=== PATIENT | male | born 1945 | race Caucasian/White ===

== ENCOUNTER → 2016-06-22 | Outpatient (CLI) | payer MEDICARE ==
--- NOTE | 2016-06-22 15:15 | MR ---
EXAMINATION TYPE: MR knee RT wo con DATE OF EXAM: 06/22/2016 1:42 PM COMPARISON: NONE HISTORY: Tear of medial meniscus right knee. Right knee pain after injury one month ago. History of p rior surgery per patient. TECHNIQUE: Multiplanar, multisequence images of the knee is performed without IV contrast. FINDINGS: MEDIAL MENISCUS: Oblique signal posterior horn of medial meniscus extends towards central body and ab uts inferior articular surface on sagittal image 10. Anterior horn shows linear horizontal signal dang s not extend to articular surface. LATERAL MENISCUS: Anterior and posterior horns are intact without tear. CRUCIATE LIGAMENTS: The anterior and posterior cruciate ligaments are intact and unremarkable. COLLATERAL LIGAMENTS: The medial collateral ligament and lateral collateral ligament complex are inta ct. Moderate to severe fluid signal surrounds medial collateral ligament and adjacent subcutaneous ti ssue. EXTENSOR MECHANISM: Visualized quadriceps and patellar tendons are intact. EFFUSION: There is small suprapatellar joint effusion. POPLITEAL CYST: There is tiny popliteal/clarke cyst. TRICOMPARTMENT SPACES: There is mild to moderate joint space loss patellofemoral compartment. Mild kylie int space loss medial tibiofemoral compartment is noted. There is mild tibial condylar spurring. CARTILAGE: There is loss or thinning of articular cartilage medial tibiofemoral compartment. No signi ficant chondral malacia patella is present. BONE MARROW SIGNAL: There is heterogeneous increased T2 signal consistent osseous contusion or bone m arrow edema involving the distal medial femoral condyle. OTHER: No additional significant abnormality is appreciated. IMPRESSION: 1. Full-thickness oblique tear posterior horn of medial meniscus. 2. Intrasubstance tearing anterior horn of medial meniscus. 3. Moderate to severe MCL sprain injury. 4. Osseous contusion or bone marrow edema involving distal medial femoral condyle. 5. Background of mild to moderate degenerative changes right knee as detailed above. 6. Tiny popliteal cyst.
== END | disposition home or self-care (01) ==
LOC: RADMRIMAIN 12:37
PROVIDERS: ATTEND Orthopaedic Surgery Adult Reconstructive Orthopaedic Surgery
DX: S83.241A Other tear of medial meniscus, current injury, right knee, initial encounter (principal); M17.11 Unilateral primary osteoarthritis, right knee; M71.21 Synovial cyst of popliteal space [Baker], right knee

== ENCOUNTER → 2016-06-23 | Outpatient (CLI) | payer MEDICARE ==
--- NOTE | 2016-06-23 10:33 | CTL ---
EXAMINATION TYPE: CT Low Dose Lung cancer screening DATE OF EXAM ORDERED: 06/23/2016 9:04 AM HISTORY: 70-year-old male abnormal chest x-ray, COPD. Lung cancer screening CT DLP: [address] CTDI: 2.49 mGy Automated exposure control for dose reduction was used. SCREENING VISIT: Baseline COMPARISON: None TECHNIQUE: Low dose computed tomography scan was performed through the chest at 1 mm thick sections a nd reconstructed images in the coronal and sagittal plane at [address] DIAGNOSTIC QUALITY: Limited, but interpretable FINDINGS: The heart is normal size without pericardial effusion. Coronary vessel calcifications are present and are remarkable for coronary artery disease. There is lipomatous hypertrophy of the anterior atrial septum. Ectasia/borderline aneurysm ascending aorta at 4.0 cm. Conventional arch vessels branching anatomy wi th mild atherosclerotic arch calcification. Additional mild aneurysm upper descending thoracic aorta at 3.3 cm. There is borderline to mildly enlarged caliber to the main right and left pulmonary arteries at 2.7 c m each suggesting underlying pulmonary arterial hypertension. There is a 2.6 x 1.9 cm ovoid intermedi ate density lesion in the prevascular space behind the manubrium that may have an extension from the right sternoclavicular joint. Otherwise, no thoracic lymphadenopathy. Evaluation of the lungs shows a 1.7 x 0.9 cm spiculated lesion along the anterior right midlung withi n the right upper lobe abutting the minor fissure. Mild diffuse bronchial wall thickening is noted suggesting bronchitis or chronic asthma. No consolida tion or pleural effusion. Visualized upper abdomen suggest numerous cysts from both kidneys. There is a 3.2 cm low-density mass associated with the right adrenal gland with density of -1 Hounsfield units suggestive of a lipid ri ch adrenal adenoma. An inferior splenule is noted. Bones: Endplate spondylosis mid to lower thoracic spine. No osseous destructive process. IMPRESSION: 1. Lung RADS 4B - suspicious; a 1.7 cm spiculated right upper lobe nodule. 2. A 2.6 x 1.9 cm ovoid lesion in the anterior mediastinum behind the sternal manubrium is suspected to represent a synovial cyst from the right sternoclavicular joint but this is not definite. 3. Bronchitis versus chronic asthma. 4. Ectatic/mildly aneurysmal thoracic aorta (ascending aorta 4.0 cm and upper descending thoracic aor ta 3.3 cm). 5. Findings suggesting pulmonary arterial hypertension. 6. A 3.2 cm low density mass involving the right adrenal gland suspected to represent a lipid rich ad renal adenoma. RECOMMENDATION: 1. PET CT to further evaluate and further clinical management for potential 1.7 cm right upper lobe l tiana cancer. 2. 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 3. Smoking cessation. CT LUNG RAD: Lung-Rad 4B Suspicious
== END | disposition home or self-care (01) ==
LOC: RADCTMAIN 08:38
PROVIDERS: ATTEND Family Medicine
DX: Z12.2 Encounter for screening for malignant neoplasm of respiratory organs (principal); R91.1 Solitary pulmonary nodule; F17.200 Nicotine dependence, unspecified, uncomplicated

== ENCOUNTER → 2016-07-25 | Outpatient (CLI) | payer MEDICARE ==
--- NOTE | 2016-07-25 18:42 | PE ---
EXAMINATION TYPE: PET CT fusion skull to thigh DATE OF EXAM: 07/25/2016 12:52 PM COMPARISON: Low-dose CT chest screening 06/23/2016 Prior PET/CT: None HISTORY: Abnormal screening CT of the chest, history of prostate cancer. TECHNIQUE: Following the intravenous administration of 14.5. mCi of F-18 FDG, whole body images are performed from the skull base to the midthigh. Images are reviewed on the computer in the coronal, a xial, and sagittal planes. Reconstructed rotating images are created on independent workstation and reviewed on the computer. A localization and attenuation correction CT is performed in conjunction with the PET scan. DLP: 532.32 mGycm SCAN: Initial Scan Blood glucose: 96 mg/dL Average Mediastinum SUV: 1.92 Average Liver SUV: 2.24 FINDINGS: NECK: No abnormal uptake THORAX: No abnormal uptake. The abnormal density in the anterior right middle lobe, at image 102 is a n SUV value of 0.6 suggesting granulomatous disease. Suspicious uptake is not identified. Monitoring with screening CT chest for lung cancer can be performed. The nodular density in the retrosternal spa ce in the superior mediastinum SUV value of 0.6 which is not suspicious. ABDOMEN: No abnormal uptake. The enlarged right adrenal gland has an SUV value 1.5. PELVIS: No abnormal uptake OSSEOUS STRUCTURES: No abnormal uptake LOCALIZATION CT: The ascending thoracic aorta at the level of main pulmonary artery is 4.9 cm which i s aneurysmal. The main pulmonary artery the bifurcation is 3.0 cm. There is some aneurysm of the infr arenal abdominal aorta AP diameter 5.0 cm which terminates above the bifurcation. Vascular calcificat ions within the aorta. Multiple cysts are on the bilateral kidneys. Gallstones are present. Coronary artery calcification is present. Right adrenal gland is enlarged measuring 3.3 cm. Old pelvic fractur e repair is evident. COMPARISON: No new findings from the screening CT of 06/23/2016. The medial right middle lobe lung mass is identified is not of abnormal uptake. The adrenal gland does not have abnormal uptake IMPRESSION: 1. No suspicious uptake to suggest hypermetabolic neoplasm. 2. Retrosternal nodular density, right enlarged low-density adrenal gland and oval right middle lobe lung findings with no hypermetabolic activity suggests benign processes. Consider monitoring CT of th e chest with contrast. Workup can be performed if should change. 3. Aneurysms of the ascending thoracic aorta distal abdominal aorta.
== END | disposition home or self-care (01) ==
LOC: RADPETMAIN 07:51
PROVIDERS: ATTEND Family Medicine
DX: R91.8 Other nonspecific abnormal finding of lung field (principal); I71.4 Abdominal aortic aneurysm, without rupture; I71.2 Thoracic aortic aneurysm, without rupture
CPT/HCPCS: 78815; A9552

== ENCOUNTER → 2016-11-24 | Outpatient (CLI) | payer MEDICARE ==
[2016-11-24 08:35] LABS: Blood Urea Nitrogen 11 mg/dL (9-20); Non-African American GFR(MDRD) >60 (>60 ml/min/1.73 sqM)
--- NOTE | 2016-11-24 11:25 | CT ---
EXAMINATION TYPE: CT chest w con DATE OF EXAM: 11/24/2016 COMPARISON: NONE HISTORY: Solitary pulmonary nodule CT DLP: 531.80 mGycm, Automated exposure control for dose reduction was used. CONTRAST: Performed injected with 100 ml mL of Omnipaque 300. TECHNIQUE: Axial images were obtained at 5 mm thick sections. Reconstructed images are reviewed on [employer] computer in the coronal plane. FINDINGS: Portion of the thyroid visualized is normal. There is soft tissue density anterior to the b rachiocephalic vein in the anterior superior mediastinum. Lymphadenopathy, and thymus are within the differential. This measures 2.6 x 1.9 cm in size. A few additional shotty lymph nodes are in the supe rior mediastinum in the pretracheal space. Couple small right peribronchial lymph nodes may be presen t. There is a spiculated mass within the right middle lobe measuring 2.8 x 2.6 cm. Series 3 image 30. In the cardiophrenic angle on the left there is a additional density measuring 2.8 x 1.2 cm. On lung windows additional irregular densities are present including the right middle lobe measuring 1.5 cm, series 4 image 26. Superior right lower lobe adjacent to the pleural margin measuring 1.2 cm. Series 4 image 35. No enlarged mediastinal or hilar adenopathy is evident. The ascending aorta diameter at the level o f the main pulmonary artery is 4.2 cm. The main pulmonary artery diameter at the bifurcation is 2.9 cm. Coronary artery calcification is present. Limited CT sections are obtained through the upper abdomen. Multiple renal cysts are present. Gallsto yuly are present. Right adrenal gland is enlarged and somewhat irregular measuring 3.4 cm in transvers e dimension. The left adrenal gland is slightly prominent measuring 1.5 cm in transverse dimension. There is a perinephric density with some adjacent stranding measuring 2.0 cm. Series 3 image 82. An e xophytic area could be on the kidney. A mass is not excluded. Some mild fatty infiltration liver is p resent. IMPRESSIONS: 1. Right middle lobe mass suspicious for neoplasm. 2. Focal area of increased density within the left cardiophrenic angle anteriorly. Underlying mass is not excluded. 3. Enlarged lymph node versus thymus within the anterior superior mediastinum. 4. Bilateral enlarged adrenal glands right more so than left. 5. A perinephric mass is not excluded posterior to the left kidney. Additional workup is recommended. 6. Additional right middle lobe right lower lobe lung masses are identified on lung windows discus sed above.
== END | disposition home or self-care (01) ==
LOC: RADCTMAIN 07:53
PROVIDERS: ATTEND Internal Medicine Critical Care Medicine
DX: R91.8 Other nonspecific abnormal finding of lung field (principal); R59.0 Localized enlarged lymph nodes
CPT/HCPCS: 82565; 84520; 71260; Q9967

== ENCOUNTER 2016-12-01 08:50 | Emergency (ER) | payer MEDICARE ==
[2016-12-01 09:02] VITALS: RESP 18; TEMP 97.6
[2016-12-01] MEDS ORDERED: OXYMETAZOLINE 0.05% NASL SPRAY 1 SPRAY BOTTLE NASAL STA (09:27)
--- NOTE | 2016-12-01 10:37 | ED ---
General Adult HPI - General Chief complaint: ENT Stated complaint: nose bleed Time Seen by Provider: 12/01/16 08:59 Source: patient, RN notes reviewed, old records reviewed Mode of arrival: ambulatory Limitations: no limitations - History of Present Illness Initial comments: This is a 70-year-old male the ER for evaluation. Patient presents today for evaluation regarding method nosebleeding. Woke with nosebleed today, no blood thinners. No headache no trauma. Patient denies any other complaints, does not feel lightheaded or dizzy. - Related Data Home Medications Medication Instructions Recorded Confirmed Aspirin 81 mg PO DAILY 03/07/14 12/01/16 Hydrochlorothiazide 25 mg PO DAILY 03/07/14 12/01/16 Losartan Potassium [Cozaar] 100 mg PO HS 03/07/14 12/01/16 Multivitamins, Thera [Multivitamin] 1 tab PO DAILY 03/07/14 12/01/16 Simvastatin [Zocor] 80 mg PO HS 03/07/14 12/01/16 amLODIPine [Norvasc] 5 mg PO DAILY 03/07/14 12/01/16 Allergies Allergy/AdvReac Type Severity Reaction Status Date / Time No Known Allergies Allergy Verified 12/01/16 09:46 Review of Systems ROS Statement: Those systems with pertinent positive or pertinent negative responses have been documented in the HPI. ROS Other: All systems not noted in ROS Statement are negative. Past Medical History Past Medical History: Cancer, Hyperlipidemia, Hypertension Additional Past Medical History / Comment(s): Prostate CA History of Any Multi-Drug Resistant Organisms: None Reported Past Surgical History: Hernia Repair, Joint Replacement, Orthopedic Surgery, Prostate Surgery Past Psychological History: No Psychological Hx Reported Smoking Status: Current every day smoker Past Alcohol Use History: Daily Past Drug Use History: None Reported General Exam Limitations: no limitations General appearance: alert, in no apparent distress Head exam: Present: atraumatic, normocephalic, normal inspection Eye exam: Present: normal appearance, PERRL, EOMI. Absent: scleral icterus, conjunctival injection, periorbital swelling ENT exam: Present: normal exam, mucous membranes moist Neck exam: Present: normal inspection. Absent: tenderness, meningismus, lymphadenopathy Respiratory exam: Present: normal lung sounds bilaterally. Absent: respiratory distress, wheezes, rales, rhonchi, stridor Cardiovascular Exam: Present: regular rate, normal rhythm, normal heart sounds. Absent: systolic murmur, diastolic murmur, rubs, gallop, clicks GI/Abdominal exam: Present: soft, normal bowel sounds. Absent: distended, tenderness, guarding, rebound, rigid Extremities exam: Present: normal inspection, full ROM, normal capillary refill. Absent: tenderness, pedal edema, joint swelling, calf tenderness Back exam: Present: normal inspection Neurological exam: Present: alert, oriented X3, CN II-XII intact Psychiatric exam: Present: normal affect, normal mood Skin exam: Present: warm, dry, intact, normal color. Absent: rash Course Vital Signs 12/01/16 08:59 Temperature 97.6 F Pulse Rate 92 Respiratory 18 Rate Blood Pressure 147/88 O2 Sat by Pulse 95 Oximetry - Reevaluation(s) Reevaluation #1: 12/01/16 10:37 Epistaxis treated with Afrin, bleeding stopped, silver nitrate Medical Decision Making - Medical Decision Making 70 male here for evaluation of epistaxis. Left naris epistaxis. That at this point has stopped. Disposition Clinical Impression: Epistaxis Disposition: HOME SELF-CARE Condition: Good Instructions: Nosebleed (ED) Referrals: Casimiro Sandoval MD [Primary Care Provider] - 1-2 days
[2016-12-01 10:45] VITALS: BP 135/80; PULSE 88
== END 2016-12-01 10:45 | disposition home or self-care (01) ==
LOC: EC 08:50
DX: R04.0 Epistaxis (principal); E78.5 Hyperlipidemia, unspecified; I10 Essential (primary) hypertension; Z85.46 Personal history of malignant neoplasm of prostate; F17.200 Nicotine dependence, unspecified, uncomplicated; Z79.82 Long term (current) use of aspirin; Z79.899 Other long term (current) drug therapy
CPT/HCPCS: 99283

== ENCOUNTER 2016-12-10 11:03 | Day surgery (SDC) | payer MEDICARE ==
[2016-12-09 13:09] VITALS: BMI 28.7
[~2016-12-10 11:03] MED LIST: ALBUTEROL NEB (CONC) 2.5 MG/0.5 ML INHALATION ONE; LACTATED RINGERS 1,000 ML IV ONE; LACTATED RINGERS 1,000 ML IV SCH; LIDOCAINE 2% (PF) 20 MG/ML 10ML INHALATION ONE; Pre Op ABX Message 1 EACH MISC MISCELLANE ONE
[2016-12-10] MEDS ORDERED: LIDOCAINE 1% 20 ML VIAL (10MG/ML) FOR IV START INTRADERMA ONE (11:40)
--- NOTE | 2016-12-10 13:10 | CT ---
EXAMINATION TYPE: CT Chest joshua Heredia Protocol DATE OF EXAM: 12/10/2016 COMPARISON: 11/24/2016 HISTORY: Preprocedural CT DLP: 627 mGycm Automated exposure control for dose reduction was used. FINDINGS: Portion of the thyroid visualized is normal. There is soft tissue density anterior to the brachioceph alic vein in the anterior superior mediastinum. Lymphadenopathy, and thymus are within the differenti al. This measures 2.6 x 1.9 cm in size. A few additional shotty lymph nodes are in the superior media stinum in the pretracheal space. Couple small right peribronchial lymph nodes may be present. There i s a spiculated mass within the right middle lobe measuring 2.8 x 2.6 cm. Second spiculated mass is stable. On lung windows additional irregular densities are present includin g the right middle lobe measuring 1.5 cm. Fat appearing attenuation along the right cardiac border ma y represent extension of pericardial fat, lipomatosis or small lipoma. Superior right lower lobe adjacent to the pleural margin measuring 1.2 cm. No enlarged mediastinal or hilar adenopathy is evident. The ascending aorta diameter at the level of the main pulmonary artery is 4.2 cm. The main pulmonary artery diameter at the bifurcation is 2.9 cm. Coronary artery calcifica tion is present. Limited CT sections are obtained through the upper abdomen. Multiple renal cysts are present. Gallsto yuly are present. Right adrenal gland is enlarged and somewhat irregular measuring 3.4 cm in transvers e dimension. The left adrenal gland is slightly prominent measuring 1.5 cm in transverse dimension. M etastases not excluded. Rib deformities are suggestive of chronic or previous trauma. IMPRESSION: 1. Navigation bronchoscopy
[2016-12-10] MEDS ORDERED: SUCCINYLCHOLINE CHLORIDE 100 MG/5 ML SYR IV ONE (13:54)
[2016-12-10] MEDS ORDERED: fentaNYL (PF) 50 MCG/ML 2 ML AMP ONE (13:54)
[2016-12-10] MEDS ORDERED: LIDOCAINE 1% INJ 10MG/ML (20 ML MDV) ONE (13:54)
[2016-12-10] MEDS ORDERED: PROPOFOL 10 MG/ML 20 ML VIAL IV ONE (13:54)
[2016-12-10] MEDS ORDERED: MIDAZOLAM 2 MG/2 ML VIAL ONE (13:54)
[2016-12-10] MEDS ORDERED: LACTATED RINGERS 1,000 ML IV ONE (14:22)
--- NOTE | 2016-12-10 14:48 | P.PCN ---
Date of Procedure: 12/10/16 Preoperative Diagnosis: pulmonary nodule , RUL Postoperative Diagnosis: same Procedure(s) Performed: navigational bronchoscopy, transbronchial biopsy, transbronchial needle aspirate , bronchioloalveolar lavage Anesthesia: JAGDISHA Surgeon: Ino Kennedy Estimated Blood Loss (ml): 10 Pathology: other Condition: stable Disposition: same day Operative Findings: This procedure was done in the operating room. The patient was anesthetized, intubated and placed on a mechanical ventilator. This process was done by anesthesia, Dr. Vicente Porter. A preoperative CAT scan was already done. The CAT scan was uploaded to the burn navigational system and appropriate markings of the right upper lobe pulmonary lesions were obtained. All this information was then transferred into the veran station. The appropriate the pads were applied to the patient's chest. Following this, the flexible bronchoscope was inserted to the ET tube and was advanced into the lower trachea. The tip of the ETT was seen around 3 cm above the melvin. The calibrations were done at 2 separate points which is the main melvin and the secondary melvin the to the right upper lobe and the bronchus intermedius. Airway inspection was done. The visualized airways included the distal trachea , bilateral mainstem bronchi, right upper lobe bronchus, bronchus intermedius, right middle lobe bronchus, right lower lobe bronchus. Examination of the left side including the left mainstem bronchus, left upper lobe bronchus and left lower lobe bronchus. All of the airways were inspected including the segments and subsegments. The airways were patent and within normal limits. At this point the bronchoscope was moved to the right upper lobe and the bronchioloalveolar lavage of the right middle lobe was done. A total of 120 mL of fluid was infused and 40 mL was suctioned back. Following that, the bronchoscope was moved to the right upper lobe anterior segment and using navigational guidance transbronchial biopsies of the right upper lobe lesion was done. Around 6 biopsies were taken under navigational guidance. Following that, transbronchial brushings was done. Atrovent of the procedure transbronchial needle aspirate of the right upper lobe lesion was done. Again navigational guidance was used to biopsy the right upper lobe lesions. Ultimately the bronchoscope was removed. The patient was extubated and the patient was transferred to recovery in stable condition. A chest x-ray will be done to rule out pneumothorax. If stable, the patient will be discharged home. Note that the airways inspection showed no acute abnormalities. There were no endobronchial lesions or tumors or foreign bodies identified. No significant respiratory secretions.
[2016-12-10 14:58] VITALS: RESP 18; TEMP 97.4
--- NOTE | 2016-12-10 15:27 | XR ---
EXAMINATION TYPE: XR chest 1V DATE OF EXAM: 12/10/2016 COMPARISON: 11/30/2016 HISTORY: Post bronchoscopy TECHNIQUE: Single frontal view of the chest is obtained. FINDINGS: Right perihilar and right middle lobe opacity may relate to postbiopsy hemorrhage and/or s cattered areas of atelectasis. No postprocedural pneumothorax is seen. Left lung remains clear. Relat millie prominence of the cardiac silhouette relates to portable nature of the examination. Osseous struc tures appear intact. IMPRESSION: No postprocedural pneumothorax. Right perihilar opacity may relate to postbiopsy hemorrh age and/or scattered areas of atelectasis.
[2016-12-10 16:27] VITALS: BP 144/74; PULSE 70
[2016-12-10 17:25] LABS: RBC, Body Fluid 100 /uL
== END 2016-12-10 16:40 | disposition home or self-care (01) ==
LOC: ORWHC2ENDO 11:03
PROVIDERS: ATTEND Internal Medicine Critical Care Medicine
DX: J40 Bronchitis, not specified as acute or chronic (principal); J44.9 Chronic obstructive pulmonary disease, unspecified; F17.200 Nicotine dependence, unspecified, uncomplicated; G47.33 Obstructive sleep apnea (adult) (pediatric); Z99.89 Dependence on other enabling machines and devices; I10 Essential (primary) hypertension; E78.5 Hyperlipidemia, unspecified; I71.4 Abdominal aortic aneurysm, without rupture; N28.1 Cyst of kidney, acquired; Z79.82 Long term (current) use of aspirin; Z79.899 Other long term (current) drug therapy
CPT/HCPCS: 87798 ×4; 87496; 87498; 87529 ×2; 88104; 88108; 88305; 88173; 89050; 87252; 87502 ×2; 87070; 87205; 87116; 87102; 87206; 71010; 71250; 31628; 31629; 31623; 31624; 31627; J2250; J2001; J3010; J0330; J2704; 31625

== ENCOUNTER → 2016-12-14 | Outpatient (CLI) | payer MEDICARE ==
[2016-12-14 08:25] LABS: ALT 38 U/L (21-72); AST 35 U/L (17-59); Cholesterol 172 mg/dL (<200); HDL Cholesterol 71 mg/dL (40-60)
== END | disposition home or self-care (01) ==
LOC: LABWHC1 07:49
PROVIDERS: ATTEND Internal Medicine Interventional Cardiology
DX: E78.2 Mixed hyperlipidemia (principal)
CPT/HCPCS: 36415; 80061; 84450; 84460

== ENCOUNTER → 2017-01-25 | Outpatient (CLI) | payer MEDICARE ==
[2017-01-25 11:10] LABS: Blood Urea Nitrogen 12 mg/dL (9-20); Non-African American GFR(MDRD) >60 (>60 ml/min/1.73 sqM)
--- NOTE | 2017-01-25 12:30 | CT ---
EXAMINATION TYPE: CT chest w con DATE OF EXAM: 01/25/2017 COMPARISON: PET/CT dated 07/25/[address] thorax dated 11/24/2016 HISTORY: pulmonary nodule follow up CT DLP: 481.3 mGycm. Automated Exposure Control for Dose Reduction was Utilized. TECHNIQUE: CT scan of the thorax is performed following with IV Contrast, patient injected with 100 mL of Omnipaque 300. FINDINGS: LUNGS: There is near complete resolution of the previously seen right middle lobe larger opacity now with a focal area of groundglass opacity measuring up to 1.0 x 0.6 cm. Superior to this within the an terior right middle lobe the previously seen nodule measuring 1.5 cm is similar now measuring 1.4 cm, overall stable given differences in measurement technique and slice selection. The previously seen o pacity in the left cardiophrenic angle has entirely resolved with no residual opacity remaining. Ill- defined patchy area of groundglass opacity remains in the region of the previously seen 1.2 cm subple ural right lower lobe pulmonary nodule. MEDIASTINUM: There are no greater than 1 cm hilar or mediastinal lymph nodes. Moderate three-vessel c oronary arteries ossifications are present in addition to minimal calcific atheromatous changes of th e thoracic aorta. Ascending thoracic aorta is again enlarged measuring 4.2 cm, stable from the prior exam. No pericardial effusion is seen. 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 There is a stable 2.5 x 1.9 cm superior mediastinal mass that is soft tissue attenuated . Again differential is for lymphadenopathy, thymoma, or residual thymus considered less likely given the rounded morphology. OTHER: Numerous partially visualized exophytic renal cysts are present and cholelithiasis. Additional ly there is diffuse hypoattenuation of the hepatic parenchyma in comparison to that of the splenic pa renchyma compatible with underlying hepatic steatosis. IMPRESSION: 1. Near complete resolution of the 2 larger right lower lobe and right middle lobe opacities as well as complete resolution of the opacity at the left cardiophrenic angle with persistent and overall sim ilar size of a right middle lobe 1.5 cm elongated nodule. Findings favor prior multifocal infectious or inflammatory etiology although continued surveillance for the stable 1.5 cm nodule is recommended. 2. Stable ascending thoracic aortic aneurysm. 3. Unchanged superior mediastinal rounded soft tissue attenuated mass that could relate to a thymoma or adenopathy. 4. 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
== END ==
LOC: RADCTMAIN 10:43
PROVIDERS: ATTEND Internal Medicine Critical Care Medicine
DX: R91.1 Solitary pulmonary nodule (principal); I71.2 Thoracic aortic aneurysm, without rupture; J98.59 Other diseases of mediastinum, not elsewhere classified
CPT/HCPCS: 82565; 84520; 71260; 36415; Q9967

== ENCOUNTER 2017-05-08 09:53 | Emergency (ER) | payer MEDICARE ==
--- NOTE | 2017-05-08 11:06 | ED ---
General Adult HPI - General Chief complaint: Extremity Problem,Nontraumatic Stated complaint: poss dvt Time Seen by Provider: 05/08/17 10:45 Source: patient, family, RN notes reviewed Mode of arrival: wheelchair Limitations: physical limitation - History of Present Illness Initial comments: 71-year-old male who presents emergency room today with a chief complaint of bilateral lower leg swelling. He does admit that he was [place] a cruise ship and noticed the symptoms 3 days ago he was walking around that he was having increased swelling specifically to the left lower extremity. He does admit that left leg has always been a little swollen after traumatic injury 26 years ago. Patient states that noticed much more swelling. He does not that he ran out of his hydrochlorothiazide approximately 5 days ago. Patient does admit that he's had some shortness of breath with going up and down some stairs. Also had a difficult time snorkeling. He states last Wednesday when she was over 2 years ago. Patient has seen planning lead and was told that he had 60% lung capacity in the past. Patient denies any shortness breath at this time. He states he is comfortable currently but does have some swelling to left lower leg. They were seen by a physician on the cruise ship pulled at his D-dimer test was positive and he should have ultrasound obtained. Patient denies any history of blood clots. Does take a daily aspirin. Denies any injury or trauma. Patient denies any recent fever, chills, chest pain, back pain, abdominal pain, nausea or vomiting, numbness or tingling, dysuria or hematuria, constipation or diarrhea, headaches or visual changes, or any other complaints. - Related Data Home Medications Medication Instructions Recorded Confirmed Aspirin 81 mg PO DAILY 03/07/14 12/10/16 Hydrochlorothiazide 25 mg PO DAILY 03/07/14 12/10/16 Losartan Potassium [Cozaar] 100 mg PO HS 03/07/14 12/10/16 Multivitamins, Thera [Multivitamin] 1 tab PO DAILY 03/07/14 12/10/16 Simvastatin [Zocor] 80 mg PO HS 03/07/14 12/10/16 amLODIPine [Norvasc] 5 mg PO DAILY 03/07/14 12/10/16 Allergies Allergy/AdvReac Type Severity Reaction Status Date / Time No Known Allergies Allergy Verified 05/08/17 10:36 Review of Systems ROS Statement: Those systems with pertinent positive or pertinent negative responses have been documented in the HPI. ROS Other: All systems not noted in ROS Statement are negative. Past Medical History Past Medical History: Cancer, COPD, Hyperlipidemia, Hypertension, Prostate Disorder Additional Past Medical History / Comment(s): Prostate CA, "spot on lung"- checking History of Any Multi-Drug Resistant Organisms: None Reported Past Surgical History: Hernia Repair, Orthopedic Surgery, Prostate Surgery Additional Past Surgical History / Comment(s): ORIF left hip from AA yrs. ago, knee surg., prostatectomy Past Anesthesia/Blood Transfusion Reactions: No Reported Reaction Past Psychological History: No Psychological Hx Reported Smoking Status: Current every day smoker Past Alcohol Use History: Occasional Past Drug Use History: None Reported - Past Family History Father Family Medical History: Cancer General Exam - General Exam Comments Initial Comments: General: The patient is awake and alert, in no distress, and does not appear acutely ill. Eye: Pupils are equal, round and reactive to light, extra-ocular movements are intact. No nystagmus. There is normal conjunctiva bilaterally. No signs of icterus. Ears, nose, mouth and throat: There are moist mucous membranes and no oral lesions. Neck: The neck is supple, there is no tenderness or JVD. Cardiovascular: There is a regular rate and rhythm. No murmur, rub or gallop is appreciated. Respiratory: Lungs are clear to auscultation, respirations are non-labored, breath sounds are equal. No wheezes, stridor, rales, or rhonchi. Musculoskeletal: Normal ROM. Patient does have increased swelling to left lower extremity compared to the right. Swelling around ankle and anterior left jiménez. States that there is some chronic swelling to his leg from previous trauma. Strength 5/5. Sensation intact. Pulses equal bilaterally 2+. Neurological: A&O x 3. CN II-XII intact, There are no obvious motor or sensory deficits. Coordination appears grossly intact. Speech is normal. Skin: Skin is warm and dry and no rashes or lesions are noted. Psychiatric: Cooperative, appropriate mood & affect, normal judgment. Limitations: physical limitation Course Vital Signs 05/08/17 10:32 Temperature 97.6 F Pulse Rate 80 Respiratory 16 Rate Blood Pressure 146/76 O2 Sat by Pulse 98 Oximetry EKG Findings - EKG Comments: EKG Findings:: EKG performed at 1203: Shows sinus rhythm at 69 bpm with left axis deviation. CO interval 168. QRS 112. QT/QTc 436/467. No acute ST changes. Medical Decision Making - Medical Decision Making Patient reexamined at this time shows no signs of distress. Patient's labs been reviewed. Negative BNP. Chest x-rays negative. He does have swelling greater than the left lower extremity but is somewhat chronic compared to the right. Ultrasound negative and no evidence of DVT in either leg. Patient's vitals are stable here the emergency room. He does admit that he was not on his buttock or thigh side for the past 5 days to see did not taken off medication for his cruise. Patient has restarted his meds. At this time is advised to elevate the legs or follow-up the family doctor in the next 2 days. Advised return if any symptoms increase or worsen. - Lab Data Result diagrams: 05/08/17 11:03 05/08/17 11:03 Lab Results 05/08/17 05/08/17 05/08/17 Range/Units 11:03 11:03 11:03 WBC 6.2 (3.8-10.6) k/uL RBC 4.25 L (4.30-5.90) m/uL Hgb 13.8 (13.0-17.5) gm/dL Hct 41.6 (39.0-53.0) % MCV 97.7 (80.0-100.0) fL MCH 32.4 (25.0-35.0) pg MCHC 33.2 (31.0-37.0) g/dL RDW 12.6 (11.5-15.5) % Plt Count 261 (150-450) k/uL Neutrophils % 64 % Lymphocytes % 18 % Monocytes % 11 % Eosinophils % 4 % Basophils % 1 % Neutrophils # 4.0 (1.3-7.7) k/uL Lymphocytes # 1.1 (1.0-4.8) k/uL Monocytes # 0.7 (0-1.0) k/uL Eosinophils # 0.3 (0-0.7) k/uL Basophils # 0.1 (0-0.2) k/uL PT (9.0-12.0) sec INR (<1.2) APTT (22.0-30.0) sec Sodium 146 H (137-145) mmol/L Potassium 4.2 (3.5-5.1) mmol/L Chloride 109 H (98-107) mmol/L Carbon Dioxide 26 (22-30) mmol/L Anion Gap 11 mmol/L BUN 14 (9-20) mg/dL Creatinine 0.80 (0.66-1.25) mg/dL Est GFR (MDRD) Af Amer >60 (>60 ml/min/1.73 sqM) Est GFR (MDRD) Non-Af >60 (>60 ml/min/1.73 sqM) Glucose 96 (74-99) mg/dL Calcium 10.0 (8.4-10.2) mg/dL Total Bilirubin 0.7 (0.2-1.3) mg/dL AST 29 (17-59) U/L ALT 27 (21-72) U/L Alkaline Phosphatase 62 (38-126) U/L Total Creatine Kinase 159 (55-170) U/L CK-MB (CK-2) 1.9 (0.0-2.4) ng/mL CK-MB (CK-2) Rel Index 1.2 Troponin I <0.012 (0.000-0.034) ng/mL NT-Pro-B Natriuret Pep pg/mL Total Protein 6.9 (6.3-8.2) g/dL Albumin 4.2 (3.5-5.0) g/dL 05/08/17 05/08/17 Range/Units 11:03 11:03 WBC (3.8-10.6) k/uL RBC (4.30-5.90) m/uL Hgb (13.0-17.5) gm/dL Hct (39.0-53.0) % MCV (80.0-100.0) fL MCH (25.0-35.0) pg MCHC (31.0-37.0) g/dL RDW (11.5-15.5) % Plt Count (150-450) k/uL Neutrophils % % Lymphocytes % % Monocytes % % Eosinophils % % Basophils % % Neutrophils # (1.3-7.7) k/uL Lymphocytes # (1.0-4.8) k/uL Monocytes # (0-1.0) k/uL Eosinophils # (0-0.7) k/uL Basophils # (0-0.2) k/uL PT 9.7 (9.0-12.0) sec INR 1.0 (<1.2) APTT 24.1 (22.0-30.0) sec Sodium (137-145) mmol/L Potassium (3.5-5.1) mmol/L Chloride (98-107) mmol/L Carbon Dioxide (22-30) mmol/L Anion Gap mmol/L BUN (9-20) mg/dL Creatinine (0.66-1.25) mg/dL Est GFR (MDRD) Af Amer (>60 ml/min/1.73 sqM) Est GFR (MDRD) Non-Af (>60 ml/min/1.73 sqM) Glucose (74-99) mg/dL Calcium (8.4-10.2) mg/dL Total Bilirubin (0.2-1.3) mg/dL AST (17-59) U/L ALT (21-72) U/L Alkaline Phosphatase (38-126) U/L Total Creatine Kinase (55-170) U/L CK-MB (CK-2) (0.0-2.4) ng/mL CK-MB (CK-2) Rel Index Troponin I (0.000-0.034) ng/mL NT-Pro-B Natriuret Pep 125 pg/mL Total Protein (6.3-8.2) g/dL Albumin (3.5-5.0) g/dL Disposition Clinical Impression: Leg edema Disposition: HOME SELF-CARE Condition: Good Instructions: Leg Edema (ED) Additional Instructions: Please elevate legs as discussed. Please follow-up with family doctor in the next 2 days. Please return to emergency room if the symptoms increase or worsen or for any other concerns. Referrals: Casimiro Sandoval MD [Primary Care Provider] - 1-2 days Time of Disposition: 12:28
[2017-05-08 11:20] LABS: Basophils # (A) 0.1 k/uL (0-0.2); Basophils % (A) 1 %; Eosinophils # (A) 0.3 k/uL (0-0.7); Eosinophils % (A) 4 %; HCT 41.6 % (39.0-53.0); HGB 13.8 gm/dL (13.0-17.5); Lymphocytes # (A) 1.1 k/uL (1.0-4.8); Lymphocytes % (A) 18 %; MCH 32.4 pg (25.0-35.0); MCHC 33.2 g/dL (31.0-37.0); MCV 97.7 fL (80.0-100.0); Monocytes # (A) 0.7 k/uL (0-1.0); Monocytes % (A) 11 %; Neutrophils % (A) 64 %; Platelet Count 261 k/uL (150-450); RBC 4.25 m/uL (4.30-5.90); RDW 12.6 % (11.5-15.5); WBC 6.2 k/uL (3.8-10.6)
[2017-05-08 11:29] LABS: ALT 27 U/L (21-72); AST 29 U/L (17-59); Albumin 4.2 g/dL (3.5-5.0); Alkaline Phosphatase 62 U/L (38-126); Anion Gap 11 mmol/L; Blood Urea Nitrogen 14 mg/dL (9-20); Carbon Dioxide 26 mmol/L (22-30); Chloride 109 mmol/L (98-107); Glucose 96 mg/dL (74-99); Potassium 4.2 mmol/L (3.5-5.1); Sodium 146 mmol/L (137-145); Total Bilirubin 0.7 mg/dL (0.2-1.3); Total Protein 6.9 g/dL (6.3-8.2)
[2017-05-08 11:54] LABS: Partial Thromboplastin Time 24.1 sec (22.0-30.0); Prothrombin Time 9.7 sec (9.0-12.0)
--- NOTE | 2017-05-08 12:03 | US ---
EXAMINATION TYPE: US venous doppler duplex LE DATE OF EXAM: 05/08/2017 11:44 AM COMPARISON: NONE CLINICAL HISTORY: Pain. Recent travel, swelling and pain in bilateral legs, left greater than right SIDE PERFORMED: Bilateral TECHNIQUE: The lower extremity deep venous system is examined utilizing real time linear array sonog naye with graded compression, doppler sonography and color-flow sonography. VESSELS IMAGED: External Iliac Vein (EIV) Common Femoral Vein Deep Femoral Vein Greater Saphenous Vein * Femoral Vein Popliteal Vein Small Saphenous Vein * Proximal Calf Veins (* superficial vessels) Right Leg: Negative for DVT Left Leg: Negative for DVT No popliteal fossa lesion is seen. IMPRESSION: THIS EXAMINATION IS NEGATIVE FOR DVT IN BOTH LEGS.
--- NOTE | 2017-05-08 12:04 | XR ---
EXAMINATION TYPE: XR chest 2V DATE OF EXAM: 05/08/2017 HISTORY: SOB. REFERENCE: Previous study dated 12/10/2016 lung volumes are mildly prominent. Heart size upper limits of normal. The lungs are clear.. FINDINGS: Lung volumes are prominent. The heart is at the upper limits of normal in size. The lungs a re clear. Pleural spaces are clear. IMPRESSION: 1. CORRELATE FOR COPD. 2. BORDERLINE CARDIOMEGALY.
[2017-05-08 12:07] LABS: Creatine Kinase 159 U/L (55-170)
[2017-05-08 12:21] LABS: Creatine Kinase MB 1.9 ng/mL (0.0-2.4); Troponin I <0.012 ng/mL (0.000-0.034)
[2017-05-08 12:43] VITALS: BP 142/79; PULSE 68; RESP 18; TEMP 97.8
== END 2017-05-08 12:48 | disposition home or self-care (01) ==
LOC: EC 09:53
DX: R60.0 Localized edema (principal); R06.02 Shortness of breath; E78.5 Hyperlipidemia, unspecified; I10 Essential (primary) hypertension; F17.200 Nicotine dependence, unspecified, uncomplicated; Z85.46 Personal history of malignant neoplasm of prostate; Z79.82 Long term (current) use of aspirin; Z79.899 Other long term (current) drug therapy
CPT/HCPCS: 36415; 71046; 80053; 82550; 82553; 83880; 84484; 85025; 85610; 85730; 93005; 93970; 99284

== ENCOUNTER → 2017-05-31 | Outpatient (CLI) | payer MEDICARE ==
[2017-05-31 08:16] LABS: ALT 27 U/L (21-72); AST 32 U/L (17-59); Albumin 4.5 g/dL (3.5-5.0); Alkaline Phosphatase 64 U/L (38-126); Anion Gap 12 mmol/L; Blood Urea Nitrogen 11 mg/dL (9-20); Calcium 9.8 mg/dL (8.4-10.2); Carbon Dioxide 27 mmol/L (22-30); Chloride 107 mmol/L (98-107); Cholesterol 154 mg/dL (<200); Glucose 98 mg/dL (74-99); HDL Cholesterol 67 mg/dL (40-60); LDL Cholesterol,Calculated 48 mg/dL (0-99); Potassium 4.4 mmol/L (3.5-5.1); Sodium 146 mmol/L (137-145); Total Bilirubin 0.8 mg/dL (0.2-1.3); Total Protein 7.2 g/dL (6.3-8.2); Triglycerides 194 mg/dL (<150)
== END | disposition home or self-care (01) ==
LOC: LABWHC1 07:11
PROVIDERS: ATTEND Internal Medicine Interventional Cardiology
DX: E78.2 Mixed hyperlipidemia (principal)
CPT/HCPCS: 36415; 80053; 80061

== ENCOUNTER → 2017-06-17 | Outpatient (CLI) | payer MEDICARE ==
[2017-06-17 12:13] LABS: Anion Gap 14 mmol/L; Blood Urea Nitrogen 17 mg/dL (9-20); Carbon Dioxide 27 mmol/L (22-30); Chloride 105 mmol/L (98-107); Glucose 115 mg/dL (74-99); Potassium 4.6 mmol/L (3.5-5.1); Sodium 146 mmol/L (137-145)
== END | disposition home or self-care (01) ==
LOC: LABWHC1 11:00
PROVIDERS: ATTEND Family Medicine
DX: I35.0 Nonrheumatic aortic (valve) stenosis (principal); E78.5 Hyperlipidemia, unspecified; I10 Essential (primary) hypertension; R25.1 Tremor, unspecified
CPT/HCPCS: 36415; 80048; 83880

== ENCOUNTER → 2017-08-25 | Outpatient (CLI) | payer MEDICARE ==
[2017-08-25 12:01] LABS: Blood Urea Nitrogen 14 mg/dL (9-20)
--- NOTE | 2017-08-25 13:18 | CT ---
EXAMINATION TYPE: CT chest w con DATE OF EXAM: 08/25/2017 COMPARISON: Exams dating back to 06/23/2016 HISTORY: Solitary Pulmonary Nodule CT DLP: 776 mGycm. Automated Exposure Control for Dose Reduction was Utilized. TECHNIQUE: CT scan of the thorax is performed following with IV Contrast, patient injected with 100 ml mL of Isovue 300. FINDINGS: LUNGS: Although the 1.5-1.6 cm pulmonary nodule within the inferior anterior right upper lobe along t he interlobar fissure has not changed in size dating back to 11/24/2016 this has not resolved and there fore is not infectious or inflammatory. Other benign processes are possible, however slow-growing emir plasm also remains a consideration. There has been interval resolution of the lingular opacity. No ne w pulmonary nodules are seen. No focal consolidation, pleural effusion or pneumothorax. The intrahepa tic tree is patent. MEDIASTINUM: There are no greater than 1 cm hilar or mediastinal lymph nodes other than the below men tioned possible superior mediastinal adenopathy. No pericardial effusion is seen. Three-vessel nelsy nary artery calcifications are moderate. Again within the superior mediastinum there is a stable appr oximately 2.6 x 1.8 cm low-density mass that could represent a thymoma or adenopathy. OTHER: Bilateral mild retroareolar gynecomastia is incidentally noted. There is redemonstration of st able adrenal gland nodule on the left and mass on the right at the mass measuring 3.4 cm. Again this is low-density and stable favored to represent a benign adenoma. Numerous renal cysts are redemonstra guillermo. The left perinephric rounded lesion measures approximately 2.1 cm and previously measured 2.0 cm on the exam of 11/24/2016. This is indeterminate in etiology. This is noted to be fluid attenuated and could represent an exophytic cyst with the small stalk. There is redemonstration of hepatic steatosi s and cholelithiasis. Small splenule is noted adjacent to the [place] spleen. Right atrial lipoma is a lso incidentally seen. IMPRESSION: 1. Stable irregular linear marginated, slightly spiculated 1.5 to 1.6 cm pulmonary nodule dating back to 06/23/2016, however slow-growing neoplasm remains a possibility given the morphology. No new pulmon gertrude nodules or mediastinal adenopathy. 2. Redemonstration of a stable superior mediastinal mass, hepatic steatosis, multiple benign-appearin g renal cysts, cholelithiasis, probably benign adrenal gland lesions, and indeterminant perinephric l esion that are stable in size.
== END | disposition home or self-care (01) ==
LOC: RADCTMAIN 11:12
PROVIDERS: ATTEND Internal Medicine Critical Care Medicine
DX: R91.1 Solitary pulmonary nodule (principal); J98.59 Other diseases of mediastinum, not elsewhere classified
CPT/HCPCS: 82565; 84520; 71260; 36415; Q9967

== ENCOUNTER → 2017-12-14 | Outpatient (CLI) | payer MEDICARE ==
[2017-12-14 08:43] LABS: ALT 20 U/L (21-72); AST 34 U/L (17-59); Cholesterol 147 mg/dL (<200); HDL Cholesterol 68 mg/dL (40-60); LDL Cholesterol,Calculated 62 mg/dL (0-99); Triglycerides 85 mg/dL (<150)
== END | disposition home or self-care (01) ==
LOC: LABWHC1 07:14
PROVIDERS: ATTEND Nurse Practitioner Adult Health
DX: E78.2 Mixed hyperlipidemia (principal)
CPT/HCPCS: 36415; 80061; 84450; 84460

== ENCOUNTER → 2018-02-21 | Outpatient (CLI) | payer MEDICARE ==
[2018-02-21 08:47] LABS: Blood Urea Nitrogen 13 mg/dL (9-20)
--- NOTE | 2018-02-21 09:46 | CT ---
EXAMINATION TYPE: CT chest w con DATE OF EXAM: 02/21/2018 COMPARISON: HISTORY: Solitary pulmonary nodule CT DLP: 621 mGycm Automated exposure control for dose reduction was used. CONTRAST: CT scan of the chest is performed with IV Contrast, patient injected with 100 mL of Isovue 300. FINDINGS: LUNGS: There is a stable irregular nodule within the anterior segment of the right upper lobe measuri ng 1.5 cm no new nodules are seen. Finding is nonspecific. Benign and malignant etiologies are in the differential diagnosis given the irregular margins. No consolidative pneumonia, pleural effusion or pneumothorax. Subsegmental changes posteriorly likely in the basis of dependent atelectasis. MEDIASTINUM: There remains a area of low attenuation in the anterior mediastinum retrosternal locatio n measuring 2.6 x 1.7 cm unchanged from prior exam. Measures 12 Hounsfield units suggestive of fluid. Mediastinal cyst in the differential diagnosis. No pericardial effusion is seen. Coronary artery ca lcification and mild cardiomegaly noted. OTHER: Numerous simple appearing renal cysts are noted and there is evidence of cholelithiasis. Athe rosclerotic change of the aorta with the final image exam documenting a aortic aneurysm measuring 4.4 cm. This was reported on a previous CT scan of 02/08/1715. Stable 3.4 cm right adrenal nodule is non specific. Hypertrophic and degenerative changes of the spine noted. IMPRESSION: 1. There is a stable 1.5 cm right upper lobe irregular shaped pulmonary nodule stable dating back to the CT scan of 06/23/2016. 2. Stable anterior mediastinal low density nodule measuring fluid attenuation may represent mediastin al cyst unchanged from multiple prior exams. 3. 4.4 cm abdominal aortic aneurysm not fully imaged. There is a report of 2014 documented aortic ane urysm measuring 4.8 cm. Follow-up with dedicated abdominal CT to assess for stability as clinically w arranted. 4. Cholelithiasis. 5. Multiple bilateral simple appearing renal cysts correlate for polycystic renal disease. #6 stable right adrenal nodule.
== END ==
LOC: RADCTMAIN 08:19
PROVIDERS: ATTEND Internal Medicine Critical Care Medicine
DX: R91.1 Solitary pulmonary nodule (principal)
CPT/HCPCS: 82565; 84520; 71260; 36415; Q9967

== ENCOUNTER → 2018-06-30 | Outpatient (CLI) | payer MEDICARE ==
[2018-06-30 21:29] LABS: Albumin 4.8 g/dL (3.80-4.90); Anion Gap 10.2 mmol/L (4.00-12.00); Carbon Dioxide 25.8 mmol/L (21.6-31.8); Globulin 2.4 g/dL (1.6-3.3); LDL Cholesterol,Calculated 62.4 mg/dL (0.0-131.0); Potassium 4.4 mmol/L (3.5-5.5); Total Bilirubin 0.8 mg/dL (0.3-1.2); Total Protein 7.2 g/dL (6.2-8.2); VLDL Calculation 30.6 mg/dL (5.00-40.00)
== END ==
LOC: LABWHC1 07:23
PROVIDERS: ATTEND Internal Medicine Interventional Cardiology
DX: E78.2 Mixed hyperlipidemia (principal)
CPT/HCPCS: 36415; 80053; 80061

== ENCOUNTER → 2019-01-09 | Outpatient (CLI) | payer MEDICARE ==
[2019-01-09 15:23] LABS: Basophils % (A) 1 %; Eosinophils # (A) 0.2 k/uL (0-0.7); Eosinophils % (A) 3 %; HCT 44.9 % (39.0-53.0); HGB 15.3 gm/dL (13.0-17.5); Lymphocytes # (A) 1.4 k/uL (1.0-4.8); Lymphocytes % (A) 21 %; MCH 33.2 pg (25.0-35.0); MCHC 34.1 g/dL (31.0-37.0); MCV 97.2 fL (80.0-100.0); Mean Platelet Volume 6.4; Monocytes # (A) 0.7 k/uL (0-1.0); Monocytes % (A) 10 %; Neutrophils # (A) 4.2 k/uL (1.3-7.7); Neutrophils % (A) 63 %; Platelet Count 199 k/uL (150-450); RBC 4.62 m/uL (4.30-5.90); RDW 12.8 % (11.5-15.5); WBC 6.6 k/uL (3.8-10.6)
--- NOTE | 2019-01-09 17:23 | XR ---
EXAMINATION TYPE: XR chest 2V DATE OF EXAM: 01/09/2019 COMPARISON: 05/08/2017 HISTORY: 73-year-old male cough and congestion TECHNIQUE: Frontal and lateral views FINDINGS: Heart limits of normal in size. Mild elongation/ectasia of the thoracic aorta. Some strandy atelectas is mid and lower lungs. Mild hyperinflation. No consolidation or pleural effusion. IMPRESSION: Chronic appearing changes, possible underlying COPD. No acute cardiopulmonary process.
--- NOTE | 2019-01-09 17:31 | XR ---
EXAMINATION TYPE: XR KUB DATE OF EXAM: 01/09/2019 CLINICAL DATA: 73-year-old male R19.4, R19.7, PHH COMPARISON: None FINDINGS: Prominent air-filled small and large bowel loops. No significant stool burden. No abnormally dilated bowel. Supine imaging limited for assessment of free air. Extensive fixation hardware along the proxi mal left femur and left hemipelvis. Surgical clips in the bilateral pelves. IMPRESSION: Diffusely gassy bowel without abnormal dilatation or significant stool burden.
[2019-01-09 18:31] LABS: African American GFR (CKD) 96.5 (60.0-200.0); Albumin 4.7 g/dL (3.80-4.90); Albumin/Globulin Ratio 2.47 (1.60-3.17); Anion Gap 11.5 mmol/L (4.00-12.00); BUN/Creat Ratio 14.44 Ratio (12.00-20.00); Calcium 9.4 mg/dL (8.7-10.3); Carbon Dioxide 26.5 mmol/L (21.6-31.8); Globulin 1.9 g/dL (1.6-3.3); Potassium 4.2 mmol/L (3.5-5.5); Total Bilirubin 0.7 mg/dL (0.2-1.2); Total Protein 6.6 g/dL (6.2-8.2)
== END | disposition home or self-care (01) ==
LOC: LABWHC1 14:08
PROVIDERS: ATTEND Family Medicine
DX: J44.1 Chronic obstructive pulmonary disease with (acute) exacerbation (principal); R05 Cough; R19.4 Change in bowel habit; R19.7 Diarrhea, unspecified; Q25.3 Supravalvular aortic stenosis; I10 Essential (primary) hypertension; E78.5 Hyperlipidemia, unspecified; I49.9 Cardiac arrhythmia, unspecified; E05.90 Thyrotoxicosis, unspecified without thyrotoxic crisis or storm; J44.9 Chronic obstructive pulmonary disease, unspecified
CPT/HCPCS: 36415; 71046; 74018; 80053; 84439; 84443; 85025; 93005

== ENCOUNTER → 2019-01-31 | Outpatient (CLI) | payer MEDICARE ==
[2019-01-31 10:14] LABS: HCT 46.2 % (39.0-53.0); HGB 15.2 gm/dL (13.0-17.5); MCH 32.2 pg (25.0-35.0); MCHC 32.8 g/dL (31.0-37.0); MCV 98.1 fL (80.0-100.0); Mean Platelet Volume 7.1; Platelet Count 198 k/uL (150-450)
[2019-01-31 10:25] LABS: INR 0.9 (<1.2); Partial Thromboplastin Time 27.5 sec (22.0-30.0); Prothrombin Time 9.7 sec (9.0-12.0)
[2019-01-31 18:07] LABS: African American GFR (CKD) 101.3 (60.0-200.0); Anion Gap 9.9 mmol/L (4.00-12.00); BUN/Creat Ratio 12.5 Ratio (12.00-20.00); Calcium 9.4 mg/dL (8.7-10.3); Carbon Dioxide 25.1 mmol/L (21.6-31.8); Potassium 4.4 mmol/L (3.5-5.5)
== END | disposition home or self-care (01) ==
LOC: LABWHC1 09:23
PROVIDERS: ATTEND Internal Medicine Interventional Cardiology
DX: Z01.810 Encounter for preprocedural cardiovascular examination (principal); I35.1 Nonrheumatic aortic (valve) insufficiency; I34.0 Nonrheumatic mitral (valve) insufficiency; R06.02 Shortness of breath
CPT/HCPCS: 36415; 80048; 85027; 85610; 85730

== ENCOUNTER → 2019-02-20 | Outpatient (CLI) | payer MEDICARE ==
[2019-02-20 08:13] LABS: African American GFR (CKD) >90 (>60 ml/min/1.73 sqM); Blood Urea Nitrogen 13 mg/dL (9-20); Non-African American GFR(CKD) 82 (>60 ml/min/1.73 sqM)
--- NOTE | 2019-02-20 10:31 | CT ---
EXAMINATION TYPE: CT chest wo/w con DATE OF EXAM: 02/20/2019 COMPARISON: 02/21/2018 HISTORY: Follow up pulmonary nodule CT DLP: 1052.4 mGycm. Automated Exposure Control for Dose Reduction was Utilized. TECHNIQUE: CT scan of the thorax is performed following without and with IV Contrast, patient inject ed with 100 mL of Isovue 300. FINDINGS: LUNGS: There is a stable spiculated anterior right upper lobe pulmonary nodule measuring 1.5 x 0.8 cm . This shows no interval growth in comparison to exams dating back to 06/23/2018 and no abnormal uptake on the PET/CT of 07/25/2016 despite its spiculated morphology. No new pulmonary nodule. Elongation of the trachea in anterior posterior dimension can be seen in COPD and tracheomalacia. Cat heter areas of subsegmental atelectasis and mild background emphysematous change. There is no pleur al effusion or pneumothorax seen. The tracheobronchial tree is patent. MEDIASTINUM: Mediastinal cystic lesion is unchanged given differences in slice selection measuring ap proximately 2.3 cm. Again this is fluid attenuated and thymic remnant cyst or mediastinal cyst is lik eri. These are benign etiologies. There are no greater than 1 cm hilar or mediastinal lymph nodes. No pericardial effusion is seen. Moderate coronary artery calcifications and mild cardiomegaly again noted. Lipoma is seen of the interatrial septum impressing upon the right atrium and inferior vena ca va. OTHER: No partially visualized numerous hepatic cysts and other lesions that are too small to accura tely characterize are seen. Calcified gallstone is noted. Stable low-density adrenal gland lesion, li wilfred adrenal gland adenoma on the right. Smaller probable left adrenal gland adenomas. Very small hia rosie hernia. Minimal retroareolar gynecomastia. Mild multilevel degenerative changes of the spine. IMPRESSION: 1. Continued stability in size and stable morphology of the spiculated right upper lobe pulmonary nod ule dating back to 06/23/2016. Although this is favored to be benign given its stability and lack of me tabolic activity on PET CT continued surveillance is recommended due to the spiculated morphology. 2. 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 3. Other incidental findings as seen on the priors such as bilateral adrenal gland lesions, renal les ions, hepatic steatosis, and coronary artery calcifications.
== END ==
LOC: RADCTMAIN 07:26
PROVIDERS: ATTEND Internal Medicine Critical Care Medicine
DX: J98.59 Other diseases of mediastinum, not elsewhere classified (principal); R91.1 Solitary pulmonary nodule
CPT/HCPCS: 82565; 84520; 71270; 36415; Q9967

== ENCOUNTER → 2019-05-10 | Outpatient (CLI) | payer MEDICARE ==
--- NOTE | 2019-05-10 15:41 | US ---
EXAMINATION TYPE: US venous doppler duplex LE BI DATE OF EXAM: 05/10/2019 3:28 PM COMPARISON: US 05/08/2017 CLINICAL HISTORY: Edema, I82.712. SIDE PERFORMED: Bilateral TECHNIQUE: The lower extremity deep venous system is examined utilizing real time linear array sonog naye with graded compression, doppler sonography and color-flow sonography. VESSELS IMAGED: External Iliac Vein (EIV) Common Femoral Vein Deep Femoral Vein Greater Saphenous Vein * Femoral Vein Popliteal Vein Small Saphenous Vein * Proximal Calf Veins (* superficial vessels) Right Leg: Negative for DVT Left Leg: Negative for DVT IMPRESSION: 1. Bilateral lower extremity ultrasound negative for deep venous thrombosis.
== END | disposition home or self-care (01) ==
LOC: RADUSWWP 14:57
PROVIDERS: ATTEND Family Medicine
DX: I82.712 Chronic embolism and thrombosis of superficial veins of left upper extremity (principal)
CPT/HCPCS: 93970

== ENCOUNTER → 2019-08-21 | Outpatient (CLI) | payer MEDICARE ==
--- NOTE | 2019-08-21 16:47 | CT ---
EXAMINATION TYPE: CT abdomen pelvis wo con DATE OF EXAM: 08/21/2019 HISTORY: Hematuria today. History of prostate cancer. CT DLP: 966.4 mGycm. Automated Exposure Control for Dose Reduction was Utilized. TECHNIQUE: CT scan of the abdomen and pelvis is performed without oral or IV contrast. COMPARISON: CT abdomen and pelvis February 15, 2015 and PET/CT July 25, 2016 FINDINGS: Within the limitations of a non-contrast study, the following observations are made. LUNG BASES: Coronary artery calcification and/or stent in the RCA distribution. Prominence of fat in the interarterial septum raises suspicion for lipomatous hypertrophy. LIVER/GB: Dependent small calcified gallstones.. PANCREAS: No significant abnormality is seen. SPLEEN: No significant abnormality is seen. ADRENALS: Stable sized low dense right adrenal mass measuring 3.7 x 3.5 cm axial image 32 consistent with benign lipid rich adenoma. Smaller low dense thickening inferior left adrenal gland axial image 38 likely reflecting smaller lipid rich adenoma. KIDNEYS: Numerous thin-walled dominant exophytic cysts scattered throughout both kidneys greater in n umber in the right kidney redemonstrated. No renal calculi or hydronephrosis identified. No intralumi nal calculi in the poorly distended bladder. Bladder has mild to moderate wall thickening greater sup eriorly. BOWEL: Suboptimal evaluation without enteric contrast. No suspicious small or large bowel dilatation. Diverticula in the left and sigmoid colon are present. No convincing CT evidence for acute diverticu litis. GENITAL ORGANS: Prostate gland also surgically absent. Surgical clips extend along the pelvic chain w alls bilaterally. LYMPH NODES: No greater than 1cm abdominal or pelvic lymph nodes are appreciated. OSSEOUS STRUCTURES: There are extensive fixating hardware and screws in the left pelvis and hip cause s some streak artifact limiting evaluation of pelvic structures. Moderate disc space narrowing and va cuum disc phenomenon lumbosacral junction. Grade 1 retrolisthesis L1 on L2 and L2 on L3 and to a grea ter degree L3 on L4 noted. Fairly moderate multilevel spurring in the thoracolumbar spine. OTHER: Moderate calcified plaque of the aorta extends into branch vessels. There is AAA up to 5.4 cm AP diameter axial image 69. No aneurysmal extension into common iliac arteries but there is 2.1 cm an eurysm of the left common iliac artery axial image 91 noted and additional smaller aneurysm of the le ft external iliac artery axial image 103 noted. Fairly stable 1.2 x 0.8 cm right gluteal subcutaneous lesion axial image 157 favoring sebaceous cyst or other benign etiology. IMPRESSION: 1. Source of hematuria not identified. Nonspecific mild to moderate wall thickening of the superior b ladder wall is noted. 2. Distal colonic diverticula without CT evidence for acute diverticulitis. 3. Aneurysmal AAA up to 5.4 cm on current study. Increase in size from prior. Vascular surgical refer ral advised if has not been performed.
== END | disposition home or self-care (01) ==
LOC: RADCTMAIN 16:08
PROVIDERS: ATTEND Nurse Practitioner Family
DX: I71.4 Abdominal aortic aneurysm, without rupture (principal); N32.9 Bladder disorder, unspecified; K57.30 Diverticulosis of large intestine without perforation or abscess without bleeding
CPT/HCPCS: 74176

== ENCOUNTER → 2019-09-12 | Outpatient (CLI) | payer MEDICARE ==
[2019-09-12 06:52] LABS: African American GFR (CKD) >90 (>60 ml/min/1.73 sqM); Blood Urea Nitrogen 8 mg/dL (9-20); Non-African American GFR(CKD) >90 (>60 ml/min/1.73 sqM)
--- NOTE | 2019-09-12 08:17 | CT ---
EXAMINATION TYPE: CT angio abdomen pelvis DATE OF EXAM: 09/12/2019 COMPARISON: CT abdomen 08/21/2019 HISTORY: AAA CT DLP: 2190 mGycm CONTRAST: CTA thoracic and abdominal aorta with 3-D reconstruction is performed without Oral Contrast and witho ut and with IV Contrast, patient injected with 100 ml mL of Isovue 370. Contrast CTA of the abdominal aorta was performed from the lung bases through the base of the pelvis. 3-D reconstruction imaging obtained at a separate workstation. CONTRAST CT ABDOMEN AND PELVIS ABDOMINAL AORTA: Infrarenal abdominal aortic aneurysm measuring 5.4 cm AP dimension with mural thromb us. Neck is noted to be approximately 4.8 cm from the renal artery origins. 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 There is also aneurysm of the left internal iliac artery at 2 cm. Atheroma tous changes are noted bilaterally without evidence for occlusion. No evidence for dissection or para -aortic hematoma. LIVER/GB-cholelithiasis noted. No space-occupying hepatic lesions. PANCREAS- No significant abnormality is seen. SPLEEN- No significant abnormality is seen. ADRENALS- No significant abnormality is seen. KIDNEYS/BLADDER-renal cystic changes noted bilaterally. BOWEL- No Significant abnormality GENITAL ORGANS: No gross abnormality seen. LYMPH NODES- No greater than 1cm abdominal or pelvic lymph nodes areappreciated. OSSEOUS STRUCTURES-postoperative changes of the left hemipelvis and left hip. OTHER- No significant abnormality is seen. IMPRESSION- 1. Infrarenal abdominal aortic aneurysm as discussed aneurysms of the left common iliac artery and th e left internal iliac artery.
== END | disposition home or self-care (01) ==
LOC: RADCTMAIN 06:09
PROVIDERS: ATTEND Surgery
DX: I71.4 Abdominal aortic aneurysm, without rupture (principal)
CPT/HCPCS: 82565; 84520; 36415; 74174; Q9967

== ENCOUNTER → 2019-10-25 | Outpatient (CLI) | payer MEDICARE ==
[2019-10-25 09:27] LABS: Basophils # (A) 0.1 k/uL (0-0.2); Basophils % (A) 1 %; Eosinophils # (A) 0.4 k/uL (0-0.7); Eosinophils % (A) 6 %; HCT 47.2 % (39.0-53.0); HGB 15.3 gm/dL (13.0-17.5); Lymphocytes # (A) 1.5 k/uL (1.0-4.8); Lymphocytes % (A) 27 %; MCH 32.1 pg (25.0-35.0); MCHC 32.4 g/dL (31.0-37.0); Mean Platelet Volume 7.7; Monocytes # (A) 0.6 k/uL (0-1.0); Monocytes % (A) 10 %; Neutrophils % (A) 53 %; Platelet Count 187 k/uL (150-450); RBC 4.77 m/uL (4.30-5.90); RDW 12.7 % (11.5-15.5); WBC 5.7 k/uL (3.8-10.6)
[2019-10-25 09:38] LABS: African American GFR (CKD) >90 (>60 ml/min/1.73 sqM); Anion Gap 6 mmol/L; Blood Urea Nitrogen 11 mg/dL (9-20); Carbon Dioxide 27 mmol/L (22-30); Chloride 109 mmol/L (98-107); Non-African American GFR(CKD) >90 (>60 ml/min/1.73 sqM); Potassium 4.8 mmol/L (3.5-5.1); Sodium 142 mmol/L (137-145)
== END | disposition home or self-care (01) ==
LOC: LABPAT 07:57
PROVIDERS: ATTEND Surgery
DX: Z01.818 Encounter for other preprocedural examination (principal); I71.4 Abdominal aortic aneurysm, without rupture
CPT/HCPCS: 36415; 80051; 82565; 84520; 85025

== ENCOUNTER 2019-10-30 09:20 | Inpatient (IN) | payer MEDICARE ==
[2019-10-25 09:12] VITALS: BMI 30.6
[~2019-10-30 09:20] MED LIST changes: -ALBUTEROL NEB (CONC) 2.5 MG/0.5 ML INHALATION ONE; +DEXAMETHASONE SOD PHOSPHATE 10 MG/ML 1 ML VIAL IV ONE; -LACTATED RINGERS 1,000 ML IV ONE; -LACTATED RINGERS 1,000 ML IV SCH; +LIDOCAINE 1% (10MG/ML) FOR IV START INTRADERMA PRN; -LIDOCAINE 2% (PF) 20 MG/ML 10ML INHALATION ONE; +MIDAZOLAM 2 MG/2 ML VIAL IV PRN; -Pre Op ABX Message 1 EACH MISC MISCELLANE ONE; +SODIUM CHLORIDE 0.9% 1,000 ML in EMPTY BAG 1 BAG IV ONE; +fentaNYL (PF) 50 MCG/ML 2 ML AMP IV PRN
[2019-10-30] MEDS ORDERED: SODIUM CHLORIDE 0.9% 1,000 ML IV ONE (09:35)
[2019-10-30] MEDS ORDERED: LIDOCAINE 1% INJ 10MG/ML (20 ML MDV) ONE ×2 (10:08→11:28)
[2019-10-30] MEDS ORDERED: ceFAZolin 1,000 MG VIAL ONE (11:28)
[2019-10-30] MEDS ORDERED: SODIUM CHLORIDE 0.9% 100 ML BAG ONE (11:28)
[2019-10-30] MEDS ORDERED: NEOSTIGMINE 1 MG/ML 10 ML VIAL ONE (11:28)
[2019-10-30] MEDS ORDERED: SUCCINYLCHOLINE CHLORIDE 100 MG/5 ML SYR IV ONE (11:28)
[2019-10-30] MEDS ORDERED: PROPOFOL 10 MG/ML 20 ML VIAL IV ONE (11:28)
[2019-10-30] MEDS ORDERED: fentaNYL (PF) 50 MCG/ML 2 ML AMP ONE (11:28)
[2019-10-30] MEDS ORDERED: PHENYLEPHRINE-0.9% NACL SYG 1 MG/10 ML SYRINGE ONE (11:28)
[2019-10-30] MEDS ORDERED: PROTAMINE SULFATE 10 MG/ML 5 ML VIAL IV ONE (11:28)
[2019-10-30] MEDS ORDERED: ROCURONIUM BROMIDE 10 MG/ML 5 ML VIAL IV ONE (11:28)
[2019-10-30] MEDS ORDERED: GLYCOPYRROLATE 0.2 MG/ML 2 ML VIAL ONE (11:28)
[2019-10-30] MEDS ORDERED: HEPARIN SODIUM,PORCINE 10,000 UNIT/ML 1 ML VIAL ONE (11:28)
[2019-10-30] MEDS ORDERED: ESMOLOL 100 MG/10 ML VIAL ONE (11:28)
[2019-10-30] MEDS ORDERED: ONDANSETRON 4 MG/2 ML VIAL ONE (11:28)
[2019-10-30] MEDS ORDERED: MIDAZOLAM 2 MG/2 ML VIAL ONE (11:28)
[2019-10-30] MEDS ORDERED: DEXAMETHASONE SOD PHOSPHATE 10 MG/ML 1 ML VIAL ONE (11:28)
[2019-10-30] MEDS ORDERED: IV FLUID CONTINUATION 1,000 ML IV ONE (14:12)
[2019-10-30] MEDS ORDERED: NITROGLYCERIN-D5W PMX 50 MG in DEXTROSE/WATER 1 250ML.BAG IV ONE (14:18)
--- NOTE | 2019-10-30 14:20 | IR ---
EXAMINATION TYPE: IR stent intravas non coronary DATE OF EXAM: 10/30/2019 CLINICAL HISTORY: AAA. TECHNIQUE: Fluoroscopy. COMPARISON: None. FINDINGS: Fluoroscopic guidance was provided during abdominal aortic stent graft insertion procedure performed by Dr. Mccurdy. A total of 10.2 minutes of fluoroscopic time was utilized during the pr ocedure and multiple cine runs and images are acquired. Please refer to procedure note for further de tails as I was not present nor performed procedure. IMPRESSION: As Above.
[2019-10-30] MEDS ORDERED: HYDROcodone/APAP 5-325MG 1 EACH TAB PO PRN ×2 (14:35→14:38)
--- NOTE | 2019-10-30 14:51 | P.OP ---
Date of Procedure: 10/30/19 Preoperative Diagnosis: 5.7 cm infrarenal abdominal aortic aneurysm Postoperative Diagnosis: Same. Procedure(s) Performed: Stent graft repair infrarenal abdominal aortic aneurysm utilizing Medtronic Endurate 2 stent graft system. Anesthesia: GETA Surgeon: Shmuel Mccurdy Estimated Blood Loss (ml): 75 Pathology: none sent Condition: stable Indications for Procedure: Patient was noted to have a 5.7 cm infrarenal abdominal aortic aneurysm. 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 Because the size of infrarenal aneurysm patient is offered stent graft repair. Description of Procedure: Patient was brought to the specials procedure suite. He was administered general endotracheal anesthesia delivered by the department anesthesiology. De Souza catheter is placed to gravity drainage. The patient received 2 g of Ancef in the perioperative phase for prophylactic antibiotic therapy. The patient was then sterilely prepped and draped in usual manner. Utilizing ultrasound the left common femoral artery was identified. A micropuncture needle was utilized to cannulate the common femoral artery. Guidewire was advanced into the artery. The needle was withdrawn and a micropuncture sheath and dilator advanced over the guidewire. The dilator and guidewire were withdrawn and exchanged for 0.035 inch braided J-tipped guidewire. The micropuncture sheath was withdrawn and exchanged for 5-Vincentian sheath and dilator system. The guidewire and dilator were withdrawn. A 0.035 inch Glidewire was advanced under fluoroscopic guidance into the abdominal aorta. Perclose device was then deployed in the 10 and 2 o'clock position and an 8-Vincentian sheath was placed. A similar procedure was performed for the contralateral side. The Lunderquist guidewire was advanced from the right and position superiorly at the aortic knob. From the left a marker pigtail catheter was advanced over the guidewire and positioned at the L1-L2 interspace. Angiogram was performed with the renal artery orifices being marked. From the right side the sheath was withdrawn and a Endurate 2S stent graft system measuring 28 x 14 x 103 cm was selected and advanced over the guidewire. It was positioned just below the renal arteries and deployed. The suprarenal fixation device was then opened. From the left pigtail catheter was exchanged for a angled glide catheter. [place] wire and glide catheter combination were utilized to cannulate the limb of the main body stent graft system. This was confirmed by spinning a pigtail catheter within the main body the stent graft without resistance. Guidewire was then readvanced through the pigtail catheter. A left iliac angiogram was performed and the origin of the internal iliac artery was noted. An Endurate 2 stent graft system limb was selected. This measured 16 x 24 x 156 mm and successfully deployed just above the bifurcation of the external and internal iliac arteries. A the delivery system was removed over guidewire and a 14-Vincentian sheath was advanced over the guidewire From the right and Endurate 2 stent graft system limb measuring 16 x 16 x 24 was selected after angiography demonstrated the length of limb needed. Limb was then advanced over the guidewire and successfully deployed. Lung dilation was utilized at all points of overlap of the stent graft system as well as at the proximal and distal landing zones. Pigtail catheter was then readvanced and a completion angiogram was performed. His demonstrated no evidence of any type of endoleak. With the above findings noted the sheath on the right was withdrawn and the Perclose device successfully sealed the arteriotomy. Similar procedure was performed on the left with similar results. Patient tolerated the procedure well. Palpable posterior tibial pulses were noted bilaterally. He was taken the recovery area satisfactory and stable condition.
[2019-10-30 15:18] LABS: Glucose,Whole Blood 74 mg/dL (75-99)
[2019-10-30] MEDS ORDERED: NALOXONE 0.4 MG/ML 1 ML VIAL IV PRN (16:29)
[2019-10-30] MEDS: LACTATED RINGERS 1,000 ML IV SCH ×2 (16:55→17:55)
[2019-10-30 17:40] LABS: ALT 18 U/L (4-49); AST 34 U/L (17-59); African American GFR (CKD) >90 (>60 ml/min/1.73 sqM); Albumin 3.7 g/dL (3.5-5.0); Alkaline Phosphatase 69 U/L (38-126); Anion Gap 6 mmol/L; Blood Urea Nitrogen 12 mg/dL (9-20); Calcium 8.6 mg/dL (8.4-10.2); Carbon Dioxide 21 mmol/L (22-30); Chloride 110 mmol/L (98-107); Glucose 97 mg/dL (74-99); Non-African American GFR(CKD) >90 (>60 ml/min/1.73 sqM); Potassium 4.3 mmol/L (3.5-5.1); Sodium 137 mmol/L (137-145); Total Bilirubin 0.9 mg/dL (0.2-1.3)
[2019-10-30] MEDS: METOPROLOL SUCCINATE (ER) 50 MG TAB.ER.24H PO SCH (17:54)
[2019-10-30 19:46] LABS: Magnesium 1.9 mg/dL (1.6-2.3); Phosphorus 3.2 mg/dL (2.5-4.5)
[2019-10-30] MEDS ORDERED: ATORVASTATIN 40 MG TAB PO SCH (21:00)
[2019-10-30] MEDS: IPRATROPIUM 0.5 MG/2.5 ML NEBU INHALATION SCH (21:13)
[2019-10-30] MEDS: MAGNESIUM SULFATE-D5W PMX 1 GM in DEXTROSE/WATER 1 100ML.BAG IVPB SCH ×2 (22:21→23:36)
[2019-10-31] MEDS: LACTATED RINGERS 1,000 ML IV SCH ×2 (04:50→11:39)
[2019-10-31 05:14] LABS: Basophils % (A) 0 %; Eosinophils % (A) 0 %; HCT 39.1 % (39.0-53.0); HGB 13.2 gm/dL (13.0-17.5); Lymphocytes # (A) 0.7 k/uL (1.0-4.8); Lymphocytes % (A) 6 %; MCH 33.2 pg (25.0-35.0); MCHC 33.8 g/dL (31.0-37.0); Monocytes # (A) 0.9 k/uL (0-1.0); Monocytes % (A) 7 %; Neutrophils # (A) 10.1 k/uL (1.3-7.7); Neutrophils % (A) 86 %; Platelet Count 140 k/uL (150-450); RBC 3.99 m/uL (4.30-5.90); RDW 12.2 % (11.5-15.5); WBC 11.8 k/uL (3.8-10.6)
[2019-10-31 05:30] LABS: African American GFR (CKD) >90 (>60 ml/min/1.73 sqM); Anion Gap 4 mmol/L; Blood Urea Nitrogen 13 mg/dL (9-20); Calcium 8.7 mg/dL (8.4-10.2); Carbon Dioxide 23 mmol/L (22-30); Chloride 106 mmol/L (98-107); Glucose 156 mg/dL (74-99); Non-African American GFR(CKD) >90 (>60 ml/min/1.73 sqM); Sodium 133 mmol/L (137-145)
[2019-10-31] MEDS: METOPROLOL SUCCINATE (ER) 50 MG TAB.ER.24H PO SCH (07:52)
[2019-10-31] MEDS ORDERED: FORMOTEROL FUMARATE 20 MCG/2 ML NEBU INHALATION SCH (08:00)
[2019-10-31] MEDS: IPRATROPIUM 0.5 MG/2.5 ML NEBU INHALATION SCH ×2 (08:08→12:04)
[2019-10-31] MEDS ORDERED: FUROSEMIDE 20 MG TAB PO SCH (09:00)
[2019-10-31] MEDS ORDERED: ASPIRIN 81 MG PO SCH (09:00)
[2019-10-31] MEDS ORDERED: CLOPIDOGREL 75 MG TAB PO SCH (09:00)
[2019-10-31] MEDS ORDERED: POTASSIUM CHLORIDE ER 10 MEQ TAB.ER.PRT PO SCH (09:00)
--- NOTE | 2019-10-31 09:43 | P.DS ---
Providers Date of admission: 10/30/19 09:20 Expected date of discharge: 10/31/19 Attending physician: Shmuel Mccurdy DO Consults: 10/30/19 06:18 Consult to Anesthesia Routine Consulting Provider: Anesthesia,Services Consult Reason/Comments: General anesthesia for Aortic Stent procedure 10/30/19 17:46 Consult Physician Routine Consulting Provider: Casimiro Sandoval Consult Reason/Comments: Medical Management Do you want consulting provider notified?: Yes Primary care physician: Casimiro Sandoval [facility] Course: This is 73-year-old male who came in for outpatient stent graft repair of his eye 0.7 cminfrarenal abdominal aortic aneurysm. He is postop day 1 in the ICU. He had no acute changes through the night. Vital signs have been stable. He has not had any active bleeding from either groin. He is able to move bilateral lower extremities. He denies any shortness of breath or chest pain. He denies any pain. De Souza catheter and a line are still intact. Assessment: General appearance: The patient is alert, oriented, in no acute distress. HET: Head is normocephalic and atraumatic. Pupils are equal and reactive. Neck: Supple. Trachea midline. Heart: S1 S2. Regular rate and rhythm. Lungs: No crackles or wheezes are heard. Abdomen: Soft, nontender, nondistended with bowel sounds. No peritoneal signs. Extremities: Normal skin color and turgor. No cyanosis, rash, ulceration, clubbing, or edema. Palpable bilateral femoral pulses. Bilateral groin site incisions are well approximated without any bleeding. No hematoma is noted. Patient is able to move and wiggle bilateral lower extremities and are warm to touch. Neurological: No focal deficits. Strength and sensation are grossly intact. ASSESSMENT: 1. Status post op day 1 stent graft repair of infrarenal abdominal aortic aneurysm. 2. 5.7 cm infrarenal abdominal aortic aneurysm 3. Hypertension Plan: Remove A-line and De Souza catheter. Assist patient to ambulate. If patient is able to void after De Souza catheter removal and tolerate lunch, patient may be discharged home later this afternoon. The above dictated assessment and findings were discussed with Dr. De Souza. The impression and plan of care have been directed as dictated. Procedures: Stent graft repair for infrarenal abdominal aortic aneurysm utilizing Medtronic Endurate 2 stent graft system Patient Condition at Discharge: Good Plan - Discharge Summary Discharge Rx Participant: No New Discharge Prescriptions: Continue Simvastatin [Zocor] 80 mg PO HS Aspirin 81 mg PO DAILY Multivitamins, Thera [Multivitamin (formulary)] 1 tab PO DAILY Tiotropium Br/Olodaterol HCl [Stiolto Respimat Inhal [place]] 2 puff INHALATION DAILY Furosemide [Lasix] 20 mg PO DAILY Clopidogrel [Plavix] 75 mg PO DAILY Potassium Chloride 10 meq PO DAILY Metoprolol Succinate (ER) [Toprol XL] 50 mg PO DAILY Discharge Medication List Aspirin 81 mg PO DAILY 03/07/14 [History] Multivitamins, Thera [Multivitamin (formulary)] 1 tab PO DAILY 03/07/14 [History] Simvastatin [Zocor] 80 mg PO HS 03/07/14 [History] Clopidogrel [Plavix] 75 mg PO DAILY 10/25/19 [History] Furosemide [Lasix] 20 mg PO DAILY 10/25/19 [History] Metoprolol Succinate (ER) [Toprol XL] 50 mg PO DAILY 10/25/19 [History] Potassium Chloride 10 meq PO DAILY 10/25/19 [History] Tiotropium Br/Olodaterol HCl [Stiolto Respimat Inhal [place]] 2 puff INHALATION DAILY 10/25/19 [History] Follow up Appointment(s)/Referral(s): Shmuel Mccurdy DO [Doctor of Osteopathic Medicine] - 2 Weeks Activity/Diet/Wound Care/Special Instructions: No heavy lifting greater than 10 pounds. Patient may shower starting tomorrow, no tub bath. Watch for signs and symptoms of infection, fevers greater than 100.4 call the office. All the office with any active signs of bleeding from incision sites. Discharge Disposition: HOME SELF-CARE
[2019-10-31 12:52] VITALS: BP 131/72; PULSE 77; RESP 25; TEMP 98.2
== END 2019-10-31 13:08 | disposition home or self-care (01) | DRG 269 ==
LOC: 2ORMAIN 09:20 → 2SICU 16:06
PROVIDERS: ADMIT Surgery; ATTEND Surgery
PROC: 04V03DZ Restriction of Abdominal Aorta with Intraluminal Device, Percutaneous Approach (ICD-10-PCS; principal; 2019-10-30 11:15)
DX: I71.4 Abdominal aortic aneurysm, without rupture (principal); I10 Essential (primary) hypertension; G47.33 Obstructive sleep apnea (adult) (pediatric); F17.210 Nicotine dependence, cigarettes, uncomplicated; Z79.02 Long term (current) use of antithrombotics/antiplatelets; Z79.82 Long term (current) use of aspirin; Z79.899 Other long term (current) drug therapy; Z98.890 Other specified postprocedural states; Z80.42 Family history of malignant neoplasm of prostate; Z82.0 Family history of epilepsy and other diseases of the nervous system
CPT/HCPCS: 34705; 80048; 80053; 83735; 84100; 85025; 86850; 86900; 86901; 94640

== ENCOUNTER 2019-11-01 10:33 | Inpatient (IN) | payer MEDICARE ==
[2019-11-01] MEDS ORDERED: SODIUM CHLORIDE 0.9% 1,000 ML IV STA (10:43)
[2019-11-01] MEDS ORDERED: DILTIAZEM DRIP BOLUS FROM BAG 1 MG SOLN IV ONE (10:50)
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
[2019-11-01] MEDS: DILTIAZEM 125 MG in SODIUM CHLORIDE 0.9% 100 ML IV SCH ×2 (11:14→23:48)
[2019-11-01 11:15] LABS: Basophils % (A) 0 %; Eosinophils # (A) 0.1 k/uL (0-0.7); Eosinophils % (A) 1 %; HCT 43.7 % (39.0-53.0); HGB 14.5 gm/dL (13.0-17.5); Lymphocytes # (A) 1.1 k/uL (1.0-4.8); Lymphocytes % (A) 12 %; MCH 32.3 pg (25.0-35.0); MCHC 33.1 g/dL (31.0-37.0); MCV 97.8 fL (80.0-100.0); Mean Platelet Volume 8.2; Monocytes % (A) 11 %; Neutrophils # (A) 6.9 k/uL (1.3-7.7); Neutrophils % (A) 74 %; Platelet Count 142 k/uL (150-450); RBC 4.47 m/uL (4.30-5.90); RDW 12.3 % (11.5-15.5); WBC 9.3 k/uL (3.8-10.6)
[2019-11-01 11:26] LABS: INR 0.9 (<1.2); Partial Thromboplastin Time 26.6 sec (22.0-30.0); Prothrombin Time 9.9 sec (9.0-12.0)
--- NOTE | 2019-11-01 11:28 | XR ---
EXAMINATION TYPE: XR chest 1V portable DATE OF EXAM: 11/01/2019 Comparison: 01/09/2019 Clinical History: 73-year-old male tachycardia Findings: Heart borderline enlarged. Elongation/ectasia of the thoracic aorta. Mild diffuse interstitial densit y. Some strandy atelectasis at the cardiac apex. No pleural effusion. Impression: Mild interstitial prominence. Correlate to exclude mild pulmonary vascular congestion.
[2019-11-01 11:31] LABS: ALT 15 U/L (4-49); AST 28 U/L (17-59); African American GFR (CKD) >90 (>60 ml/min/1.73 sqM); Albumin 4.1 g/dL (3.5-5.0); Alkaline Phosphatase 70 U/L (38-126); Anion Gap 8 mmol/L; Blood Urea Nitrogen 11 mg/dL (9-20); Calcium 9.4 mg/dL (8.4-10.2); Carbon Dioxide 23 mmol/L (22-30); Chloride 109 mmol/L (98-107); Glucose 166 mg/dL (74-99); Non-African American GFR(CKD) >90 (>60 ml/min/1.73 sqM); Potassium 3.7 mmol/L (3.5-5.1); Sodium 140 mmol/L (137-145); Total Bilirubin 0.9 mg/dL (0.2-1.3); Total Protein 6.7 g/dL (6.3-8.2)
[2019-11-01] MEDS ORDERED: ACETAMINOPHEN TAB 325 MG TAB PO PRN (12:40)
[2019-11-01] MEDS ORDERED: NALOXONE 0.4 MG/ML 1 ML VIAL IV PRN (12:40)
[2019-11-01] MEDS: SODIUM CHLORIDE 0.9% 1,000 ML IV SCH (12:54)
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
[2019-11-01] MEDS: APIXABAN 5 MG TAB PO SCH ×2 (15:50→20:14)
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
[2019-11-01] MEDS: AMIODARONE 200 MG TAB PO SCH (20:14)
[2019-11-01] MEDS ORDERED: ATORVASTATIN 40 MG TAB PO SCH (21:00)
[2019-11-01] MEDS ORDERED: METOPROLOL TARTRATE 25 MG TAB PO SCH (21:00)
[2019-11-01 22:40] VITALS: RESP 20
[2019-11-02] MEDS: SODIUM CHLORIDE 0.9% 1,000 ML IV SCH (01:36)
[2019-11-02 06:55] LABS: African American GFR (CKD) >90 (>60 ml/min/1.73 sqM); Anion Gap 3 mmol/L; Blood Urea Nitrogen 10 mg/dL (9-20); Calcium 8.5 mg/dL (8.4-10.2); Carbon Dioxide 25 mmol/L (22-30); Chloride 108 mmol/L (98-107); Glucose 115 mg/dL (74-99); Magnesium 1.8 mg/dL (1.6-2.3); Non-African American GFR(CKD) >90 (>60 ml/min/1.73 sqM); Potassium 3.6 mmol/L (3.5-5.1); Sodium 136 mmol/L (137-145)
[2019-11-02] MEDS ORDERED: FUROSEMIDE 20 MG TAB PO SCH (09:00)
[2019-11-02] MEDS ORDERED: METOPROLOL SUCCINATE (ER) 50 MG TAB.ER.24H PO SCH (09:00)
[2019-11-02] MEDS ORDERED: CLOPIDOGREL 75 MG TAB PO SCH (09:00)
[2019-11-02] MEDS ORDERED: AMIODARONE 200 MG TAB PO STA (10:43)
[2019-11-02] MEDS: APIXABAN 5 MG TAB PO SCH (10:44)
[2019-11-02] MEDS: AMIODARONE 200 MG TAB PO SCH (10:55)
--- NOTE | 2019-11-02 10:55 | PN ---
PROGRESS NOTE Mr. Murillo is a 73-year-old male with known history of coronary artery disease, history of peripheral vascular disease, abdominal aortic aneurysm, stenting done recently, who presented with atrial flutter with initial 2-to-1 conduction. He is back in sinus mechanism. He feels well at this time. He is denying any chest pain. He denies any dizziness. His breathing has been stable. He denies any palpitation. He continues to be on amiodarone 400 mg twice a day, Eliquis 5 mg twice a day, Lipitor 40 mg daily, Plavix 75 mg daily, metoprolol succinate 50 mg daily. PHYSICAL EXAMINATION: Blood pressure 104/60 with a heart rate in the 60s. LUNGS: Clear. HEART: Regular rate and rhythm, S1, S2. No S3 with systolic murmur, no diastolic murmur, no rub. ABDOMEN: Soft, nontender. EXTREMITIES: No edema. LAB DATA: Revealed BUN and creatinine of 10 and 0.67. IMPRESSION: 1. Paroxysmal atrial flutter, back in sinus mechanism. 2. History of coronary artery disease, status post stenting. 3. History of abdominal aortic aneurysm stenting. 4. History of hyperlipidemia. 5. History of alcohol intake. RECOMMENDATION: I will stop the IV Cardizem. I will cut down the amiodarone dose to 200 mg twice a day. I will review the results of his echocardiogram. If there is no significant abnormality, then I would expect he should be able to be discharged home and follow up with his primary training project manager in the next week. I have discussed with him the importance of alcohol cessation in view of the anticoagulation. He will stay off the aspirin and continue on Plavix and Eliquis. MMODL / IJN: [id number] /
[2019-11-02 11:53] VITALS: TEMP 98.1
--- NOTE | 2019-11-02 12:00 | ECHOF ---
Referral Reason:aflutter MEASUREMENTS -------- HEIGHT: 182.9 cm WEIGHT: 110.2 kg BP: RVIDd: 3.8 cm (< 3.3) IVSd: 1.4 cm (0.6 - 1.1) LVIDd: 5.0 cm (3.9 - 5.3) LVPWd: 1.5 cm (0.6 - 1.1) EDV(Teich): 117 ml IVSs: 1.8 cm LVIDs: 3.3 cm LVPWs: 1.6 cm %IVS Thck: 30 % ESV(Teich): 44 ml EF(Teich): 63 % %FS: 34 % SV(Teich): 73 ml LA Diam: 3.6 cm (2.7 - 3.8) Ao Diam: 4.0 cm (2.0 - 3.7) AV Cusp: 1.5 cm (1.5 - 2.6) AV Vmax: 1.39 m/s AV maxP.69 mmHg TR Vmax: 1.70 m/s TR maxP.53 mmHg RAP: 5.00 mmHg RVSP: 16.53 mmHg FINDINGS -------- Atrial fibrillation. This was a techncally difficult study with suboptimal views, , Lumason utilized for enhancement of im ages. The left ventricular size is normal. There is mild concentric left ventricular hypertrophy. Overa ll left ventricular systolic function is low-normal with, an EF between 50 - 55 %. The right ventricle is normal in size. The left atrial size is normal. The right atrial size is normal. 5.0mg OF Lumason UTLIZED: 2 OR MORE WALL SEGMENTS NOT VISUALIZED. The aortic valve was not well visualized. There is mild aortic valve sclerosis. Mild mitral regurgitation is present. Mild tricuspid regurgitation present. Right ventricular systolic pressure is normal at < 35 mmHg. The pulmonic valve was not well visualized. The aortic root size is normal. There is no pericardial effusion. CONCLUSIONS -------- 1. The left ventricular size is normal. 2. There is mild concentric left ventricular hypertrophy. 3. Overall left ventricular systolic function is low-normal with, an EF between 50 - 55 %. 4. The right ventricle is normal in size. 5. The left atrial size is normal. 6. The right atrial size is normal. 7. The aortic valve was not well visualized. 8. There is mild aortic valve sclerosis. 9. Mild mitral regurgitation is present. 10. Mild tricuspid regurgitation present. 11. The pulmonic valve was not well visualized. [employer]: Destiney Juárez RDCS
[2019-11-02 14:47] VITALS: BMI 30.4
--- NOTE | 2019-11-02 15:07 | CDI ---
Documentation Clarification Form Date: 11/02/2019 02:50:14 PM From: Nasreen Godoy CCS, CCDS Admit Date: 11/01/2019 12:40:00 PM Patient Name: Yogi Murillo Visit Number: [id number] Discharge Date: ATTENTION: The Clinical Documentation Specialists (CDI) and [facility] Coding Staff appreciate your assistance in clarifying documentation. Please respond to the clarification below the line at the bottom and electronically sign. The CDI & [facility] Coding staff will review the response and follow-up if needed. Please note: Queries are made part of the Legal Health Record. If you have any questions, please contact the author of this message via ITS. Dr. Iraida Lake: Per the 10/31 History & Physical: "Afib" Per the 10/31 Cardiology Consult: "New onset atrial flutter." Per the 11/01 Progress Note: "Paroxysmal atrial flutter, back in sinus mechanism." History/Risk factors: CAD status post heart catheterization with stent in April 2019. Hyperlipidemia, Hypertension, COPD, Nicotine Dependence. Clinical Indicators: Presented to the ED on 10/31 from a Pulmonology office for evaluation of dysrhythmia & SOB. Found to have tachycardia. VS 10/31: P 150, BP 109/75 EKG #1 10/31: R 147 Unusual P axis & short NH, probable junctional tachycardia, Left axis deviation, RBBB, Left ventricular hypertrophy with repolarization abnormality. EKG #2 10/31: R 98 Atrial fibrillation, Left axis deviation, RBBB. 11/01 ECHO: Mild concentric LVH, Left ventricular systolic function is low-normal with EF 50-55%, Mild aortic valve sclerosis, Mild MR, Mild TR. Tx: IV fluid 1,000 mls @ 999/hr, IV Cardizem drip bolus, po Eliquis, Plavix, Toprol, Cordarone. In your professional opinion, in order to capture the severity of condition; can you please clarify the type of Atrial Flutter and/or Atrial Fibrillation if known? Atrial Flutter ruled out Atrial Flutter specified as: o Typical/Type I XXX o Atypical/Type II o Other, please specify Unable to determine Atrial Fibrillation ruled out Atrial Fibrillation specified as: o Chronic (with RVR) o Paroxysmal o Other type of Atrial Fibrillation Unable to determine (Last Revision: June 2017) MTDD
--- NOTE | 2019-11-02 16:32 | P.DS ---
Providers Date of admission: 11/01/19 12:40 Expected date of discharge: 11/02/19 Attending physician: Ld Fregoso Consults: 11/01/19 12:29 Consult Physician Routine Consulting Provider: Iraida Lake Consult Reason/Comments: afib Do you want consulting provider notified?: Yes Primary care physician: Casimiro Sandoval - Discharge Diagnosis(es) (1) Alcohol consumption heavy Current Visit: Yes Status: Acute (2) Afib Current Visit: Yes Status: Acute Hospital Course: admit cardiac obv new onset afib d/c home new med amiodarone 200mg 2x daily Patient Condition at Discharge: Fair Plan - Discharge Summary Discharge Rx Participant: No New Discharge Prescriptions: No Action Simvastatin [Zocor] 80 mg PO HS Aspirin 81 mg PO DAILY Multivitamins, Thera [Multivitamin (formulary)] 1 tab PO DAILY Tiotropium Br/Olodaterol HCl [Stiolto Respimat Inhal [place]] 2 puff INHALATION DAILY Furosemide [Lasix] 20 mg PO DAILY Clopidogrel [Plavix] 75 mg PO DAILY Potassium Chloride 10 meq PO DAILY Metoprolol Succinate (ER) [Toprol XL] 50 mg PO DAILY Discharge Medication List Aspirin 81 mg PO DAILY 03/07/14 [History] Multivitamins, Thera [Multivitamin (formulary)] 1 tab PO DAILY 03/07/14 [History] Simvastatin [Zocor] 80 mg PO HS 03/07/14 [History] Clopidogrel [Plavix] 75 mg PO DAILY 10/25/19 [History] Furosemide [Lasix] 20 mg PO DAILY 10/25/19 [History] Metoprolol Succinate (ER) [Toprol XL] 50 mg PO DAILY 10/25/19 [History] Potassium Chloride 10 meq PO DAILY 10/25/19 [History] Tiotropium Br/Olodaterol HCl [Stiolto Respimat Inhal [place]] 2 puff INHALATION DAILY 10/25/19 [History] Follow up Appointment(s)/Referral(s): Casimiro Sandoval MD [Primary Care Provider] - 1-2 days
[2019-11-02 16:35] VITALS: BP 139/87; PULSE 81
[2019-11-02] MEDS ORDERED: AMIODARONE 200 MG TAB PO SCH (21:00)
--- NOTE | 2019-11-03 09:42 | CDI ---
Documentation Clarification Form Date: 11/03/2019 09:36:51 AM From: Nasreen SerraGodoySUSU cronin, CCDS Admit Date: 11/01/2019 12:40:00 PM Patient Name: Yogi Murillo Visit Number: [id number] Discharge Date: 11/02/2019 05:28:00 PM ATTENTION: The Clinical Documentation Specialists (CDI) and [facility] Coding Staff appreciate your assistance in clarifying documentation. Please respond to the clarification below the line at the bottom and electronically sign. The CDI & [facility] Coding staff will review the response and follow-up if needed. Please note: Queries are made part of the Legal Health Record. If you have any questions, please contact the author of this message via ITS. Dr. Ld Fregoso: Per the 10/31 History & Physical: "Afib" Per the 10/31 Cardiology Consult: "New onset atrial flutter." Per the 11/01 Progress Note: "Paroxysmal atrial flutter, back in sinus mechanism." Per Cardiology 11/01: "Atrial Flutter, Typical Type I" Per the 11/01 Discharge Summary: Afib (without further specificity). History/Risk factors: CAD status post heart catheterization with stent in April 2019. Hyperlipidemia, Hypertension, COPD, Nicotine Dependence. Clinical Indicators: Presented to the ED on 10/31 from a Pulmonology office for evaluation of dysrhythmia & SOB. Found to have tachycardia. VS 10/31: P 150, BP 109/75 EKG #1 10/31: R 147 Unusual P axis & short NV, probable junctional tachycardia, Left axis deviation, RBBB, Left ventricular hypertrophy with repolarization abnormality. EKG #2 10/31: R 98 Atrial fibrillation, Left axis deviation, RBBB. 11/01 ECHO: Mild concentric LVH, Left ventricular systolic function is low-normal with EF 50-55%, Mild aortic valve sclerosis, Mild MR, Mild TR. Treatment: IV fluid 1,000 mls @ 999/hr, IV Cardizem drip bolus, po Eliquis, Plavix, Toprol, Cordarone. In your professional opinion, in order to capture the severity of condition; can you please clarify the type Atrial Fibrillation if known? Atrial Fibrillation ruled out Atrial Fibrillation specified as: o Chronic (with RVR) o Paroxysmal o Other type of Atrial Fibrillation Unable to determine (Last Revision: June 2017) afib/flutter_initial rate 150 MTDD
== END 2019-11-02 17:28 | disposition home or self-care (01) | DRG 310 ==
LOC: EC 10:33 → 3SCARD 12:40
PROVIDERS: ADMIT Family Medicine; ATTEND Family Medicine
DX: I48.0 Paroxysmal atrial fibrillation (principal); I72.3 Aneurysm of iliac artery; F10.20 Alcohol dependence, uncomplicated; I71.4 Abdominal aortic aneurysm, without rupture; I73.9 Peripheral vascular disease, unspecified; I48.3 Typical atrial flutter; J44.9 Chronic obstructive pulmonary disease, unspecified; I10 Essential (primary) hypertension; E78.5 Hyperlipidemia, unspecified; F17.210 Nicotine dependence, cigarettes, uncomplicated; H35.371 Puckering of macula, right eye; G47.33 Obstructive sleep apnea (adult) (pediatric); I45.10 Unspecified right bundle-branch block; I25.10 Atherosclerotic heart disease of native coronary artery without angina pectoris; Z71.3 Dietary counseling and surveillance; Z98.890 Other specified postprocedural states; Z79.899 Other long term (current) drug therapy; Z79.02 Long term (current) use of antithrombotics/antiplatelets; Z79.82 Long term (current) use of aspirin; Z85.46 Personal history of malignant neoplasm of prostate; Z90.79 Acquired absence of other genital organ(s); Z95.5 Presence of coronary angioplasty implant and graft; Z86.79 Personal history of other diseases of the circulatory system; Z95.828 Presence of other vascular implants and grafts; Z96.7 Presence of other bone and tendon implants; Z87.828 Personal history of other (healed) physical injury and trauma; Z98.42 Cataract extraction status, left eye; Z98.41 Cataract extraction status, right eye; Z96.1 Presence of intraocular lens; Z80.42 Family history of malignant neoplasm of prostate; Z82.0 Family history of epilepsy and other diseases of the nervous system
CPT/HCPCS: 36415; 71045; 80048; 80053; 83605; 83735; 84443; 84484; 85025; 85610; 85730; 93005; 93306; 96365; 96366; 96376; 99285

== ENCOUNTER 2020-01-03 09:42 | Emergency (ER) | payer MEDICARE ==
[2020-01-03 09:47] VITALS: BP 130/80; PULSE 78; RESP 18; TEMP 98
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
== END 2020-01-03 10:20 | disposition home or self-care (01) ==
LOC: EC 09:42
DX: L02.214 Cutaneous abscess of groin (principal); I10 Essential (primary) hypertension; E78.5 Hyperlipidemia, unspecified; I48.91 Unspecified atrial fibrillation; J44.9 Chronic obstructive pulmonary disease, unspecified; G47.33 Obstructive sleep apnea (adult) (pediatric); F17.200 Nicotine dependence, unspecified, uncomplicated; Z79.51 Long term (current) use of inhaled steroids; Z79.82 Long term (current) use of aspirin; Z79.02 Long term (current) use of antithrombotics/antiplatelets; Z79.899 Other long term (current) drug therapy; Z99.89 Dependence on other enabling machines and devices
CPT/HCPCS: 10060; 99283

== ENCOUNTER → 2020-01-04 | Outpatient (CLI) | payer MEDICARE ==
[2020-01-04 08:39] LABS: African American GFR (CKD) >90 (>60 ml/min/1.73 sqM); Blood Urea Nitrogen 11 mg/dL (9-20); Non-African American GFR(CKD) 84 (>60 ml/min/1.73 sqM)
--- NOTE | 2020-01-04 09:57 | CT ---
EXAMINATION TYPE: CT angio abdomen pelvis DATE OF EXAM: 01/04/2020 COMPARISON: 09/12/2019 HISTORY: 74-year-old male Abdominal aortic aneurysm TECHNIQUE: Contiguous axial scanning of the abdomen and pelvis before and after administration of 100 ml Isovue-370 IV contrast. 90 seconds delayed scan was also performed. Coronal and sagittal reconst ructions performed. 3-D reconstructions generated on a dedicated PET workstation. CT DLP: 2742 mGycm Automated exposure control for dose reduction was used. FINDINGS: Heart normal size without pericardial effusion. Scattered coronary artery calcifications are present as well as mitral annular calcifications. Strandy atelectasis in the lower lungs without pleural effusion. - Mild aneurysm lower descending thoracic aorta at 3.0 cm, unchanged. - Mild aneurysm upper abdominal aorta 3.0 cm, unchanged. - Interval placement of endovascular stent graft beginning at the level of the renal arteries. [place] sac measures 5.9 x 4.9 cm, axial image 47 versus 5.7 x 4.8 cm, previously. - Stent graft extends to the left common iliac artery which remains aneurysmal at 2.3 cm, unchanged a nd also to the right common iliac artery which is ectatic at 1.8 cm, not significantly changed. - Additional stent graft has been placed within the left internal iliac artery where the bill moore's slough sac m easures 1.8 cm, smaller as compared to 2.0 cm, previously. - No abnormal contrast accumulation to suggest endoleak. Arterial phase imaging shows no gross abnormality of the liver, spleen with small inferior splenule, or pancreas. Gallstones measuring up to 1.0 cm. No abnormal gallbladder distention. Low density mass redemonstrated of the right adrenal gland measuring 4.2 x 2.5 cm with attenuation of 0 Hounsfield units compatible with a lipid rich adrenal adenoma. Additional 1.3 cm lipid rich adrena l adenoma on the left. Numerous bilateral renal cysts redemonstrated measuring up to 4.1 cm. No dilated small bowel, free fluid, or free air. No mesenteric or retroperitoneal lymphadenopathy. Scattered mild stool. Left-sided colonic diverticulosis, redundant sigmoid colon. Mild diverticular c hange along the descending colon and proximal sigmoid. No pericolonic inflammatory change. Bladder shows prominent urinary distention. Some surgical clips noted in the pelvis and pelvic phlebo liths. No abnormal fluid collection in the pelvis or pelvic lymphadenopathy seen. BONES: Extensive malleable plate and screw fixation along the left side of the pelvis and additional screw fixation across the intertrochanteric region of the proximal left femur. Degenerative changes r ight SI joint. Hypertrophic facet arthropathy mid to lower lumbar spine. Grade 1 retrolisthesis L3-L4 and L4-L5. Also L1-L2 and L2-L3. Mild degenerative disc disease throughout. IMPRESSION: 1. INTERVAL PLACEMENT OF AORTOBIILIAC ENDOVASCULAR STENT GRAFT. THE UTE SAC IS STABLE TO MINIMALLY LARGER AT 5.9 X 4.9 CM (VERSUS 5.7 X 4.8 CM, PREVIOUSLY) BUT WITHOUT EVIDENCE OF ENDOLEAK. 2. THE STENTED LEFT COMMON ILIAC ARTERY IS STABLE IN CALIBER AT 2.3 CM. 3. ADDITIONAL STENTING OF THE LEFT INTERNAL ILIAC ARTERY WHERE THE UTE SAC IS SLIGHTLY SMALLER AT 1.8 CM VERSUS 2.0 CM, PREVIOUSLY. 4. CHOLELITHIASIS AND LEFT-SIDED COLONIC DIVERTICULOSIS. BILATERAL LIPID RICH ADRENAL ADENOMAS MEASUR ING UP TO 4.2 CM ON THE RIGHT.
== END | disposition home or self-care (01) ==
LOC: RADCTMAIN 07:44
PROVIDERS: ATTEND Surgery
DX: K80.20 Calculus of gallbladder without cholecystitis without obstruction (principal); K57.30 Diverticulosis of large intestine without perforation or abscess without bleeding; D35.02 Benign neoplasm of left adrenal gland; D35.01 Benign neoplasm of right adrenal gland; I71.4 Abdominal aortic aneurysm, without rupture; Z95.828 Presence of other vascular implants and grafts
CPT/HCPCS: 82565; 84520; 36415; 74174; Q9967

== ENCOUNTER 2020-11-19 14:03 | Emergency (ER) | payer MEDICARE ==
[2020-11-19 14:09] VITALS: RESP 18; TEMP 98
[2020-11-19] MEDS ORDERED: TOPICAL SKIN ADHESIVE 1 EACH AMP TOPICAL ONE (14:40)
[2020-11-19] MEDS ORDERED: GELATIN SPONGE,ABSORBABLE 1 GM POWDER TOPICAL STA (14:44)
[2020-11-19] MEDS ORDERED: GELATIN SPONGE,ABSORB (SMALL) 1 EACH SPONGE TOPICAL STA (14:49)
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
[2020-11-19 15:51] VITALS: BP 130/75; PULSE 68
== END 2020-11-19 15:51 | disposition home or self-care (01) ==
LOC: EC 14:03
DX: S51.012A Laceration without foreign body of left elbow, initial encounter (principal); J44.9 Chronic obstructive pulmonary disease, unspecified; I10 Essential (primary) hypertension; E78.5 Hyperlipidemia, unspecified; I48.91 Unspecified atrial fibrillation; F17.200 Nicotine dependence, unspecified, uncomplicated; Z79.82 Long term (current) use of aspirin; Z79.899 Other long term (current) drug therapy; Z95.5 Presence of coronary angioplasty implant and graft; W10.8XXA Fall (on) (from) other stairs and steps, initial encounter
CPT/HCPCS: 99282

== ENCOUNTER → 2022-06-05 | Outpatient (CLI) | payer MEDICARE ==
--- NOTE | 2022-06-07 14:47 | PE ---
EXAMINATION TYPE: PET CT fusion skull to thigh DATE OF EXAM: 06/05/2022 CLINICAL INDICATION:Male, 76 years old with history of R91.8; TECHNIQUE: Following the intravenous administration of 12.48 mCi of F-18 FDG, whole body images are performed from the skull base to the midthigh. Images are reviewed on the computer in the coronal, axial, and sagittal planes. Reconstructed rotating images are created on independent workstation and reviewed on the computer. A non-contrast CT is performed in conjunction with the PET scan. Glucose level 114 mg/dL COMPARISON: CT 05/25/2022 08/25/2017, 02/21/2018, 02/20/2019 04/17/2021, PET/CT 07/25/2016 FINDINGS: Mediastinal SUV mean is 1.7. Hepatic parenchyma SUV mean is 2.4. SKULL BASE AND NECK: No suspicious radiotracer activity. CHEST, MEDIASTINUM, AND HILAR REGION: Right anterior upper lobe pulmonary nodule central calcificatio n measures similarly at 15 x 10 x 7 mm with max SUV 0.7, this is not significantly changed back to CT chest 2017 and PET/CT 07/25/2016. ABDOMEN AND PELVIS: No suspicious radiotracer activity. OSSEOUS STRUCTURES: No suspicious radiotracer activity. OTHER CT: Atherosclerosis of the carotid bifurcations and coronary arteries. Enlarged left thyroid gl and extends into the superior mediastinum. I discussed the arterial vasculature. Aortic valve leaflet calcifications. Ascending thoracic aorta ectasia similar prior. Pericardial lipoma is similar to lakisha or. FDG activity in the skin on the right lower abdomen and right cubital fossa likely contamination. IMPRESSION: 1. Anterior right upper lobe pulmonary nodule is stable in size dating back to multiple priors inclu ding in 2017 and 2018. No FDG activity above background. In high-risk patient consider yearly lung ca ncer screening for surveillance. This is favored represent granulomatous changes given central calcif ication. 2. No suspicious FDG activity.
== END | disposition home or self-care (01) ==
LOC: RADPETMAIN 06:45
PROVIDERS: ATTEND Family Medicine
DX: R91.8 Other nonspecific abnormal finding of lung field (principal)
CPT/HCPCS: 78815; A9552

== ENCOUNTER → 2022-08-21 | Outpatient (CLI) | payer MEDICARE ==
[2022-08-21 15:37] LABS: Basophils # (A) 0.1 k/uL (0-0.2); Basophils % (A) 1 %; Eosinophils # (A) 0.1 k/uL (0-0.7); Eosinophils % (A) 1 %; HCT 45.7 % (39.0-53.0); HGB 14.9 gm/dL (13.0-17.5); Lymphocytes # (A) 0.6 k/uL (1.0-4.8); Lymphocytes % (A) 10 %; MCH 33.8 pg (25.0-35.0); MCHC 32.6 g/dL (31.0-37.0); MCV 103.6 fL (80.0-100.0); Macrocytosis Slight; Monocytes # (A) 0.5 k/uL (0-1.0); Monocytes % (A) 9 %; Neutrophils # (A) 4.8 k/uL (1.3-7.7); Neutrophils % (A) 77 %; Platelet Count 182 k/uL (150-450); RBC 4.41 m/uL (4.30-5.90); RDW 13.3 % (11.5-15.5); WBC 6.2 k/uL (3.8-10.6)
[2022-08-21 16:18] LABS: ALT 45 U/L (4-49); AST 46 U/L (17-59); African American GFR (CKD) 80 (>60 ml/min/1.73 sqM); Albumin 4.4 g/dL (3.5-5.0); Albumin/Globulin Ratio 1.7; Alkaline Phosphatase 69 U/L (38-126); Anion Gap 7 mmol/L; Blood Urea Nitrogen 20 mg/dL (9-20); Calcium 9.3 mg/dL (8.4-10.2); Carbon Dioxide 32 mmol/L (22-30); Chloride 103 mmol/L (98-107); Globulin 2.6 g/dL; Glucose 169 mg/dL (74-99); Non-African American GFR(CKD) 69 (>60 ml/min/1.73 sqM); Potassium 4.1 mmol/L (3.5-5.1); Sodium 142 mmol/L (137-145); Total Bilirubin 0.7 mg/dL (0.2-1.3)
--- NOTE | 2022-08-24 10:37 | CT ---
EXAMINATION TYPE: CT angio chest DATE OF EXAM: 08/21/2022 4:41 PM COMPARISON: Head CT 06/05/2022, CT chest 05/25/2022 HISTORY: SOB CT DLP: 497 mGycm Automated exposure control for dose reduction was used. CONTRAST: CTA scan of the thorax is performed with IV Contrast, patient injected with 100 mL of Isovue 370, pul monary embolism protocol. . FINDINGS: LUNGS: There is subsegmental consolidation involving the right upper lobe. Linear changes at the lung bases most typical of atelectasis.. There is no pleural effusion or pneumothorax seen. The trache obronchial tree is patent. Right anterior upper lobe pulmonary nodule central calcification measures similarly at 15 x 10 x 7 mm Mild centrilobular emphysematous changes with biapical pleural thickening or scarring. MEDIASTINUM: There is satisfactory enhancement of the pulmonary artery and its branches, there is no CT evidence for pulmonary embolism. There are 1.2 x 1.2 cm prevascular space nodule stable from prio r exam may represent lymph node. No pericardial effusion is seen. There is pericardial lipomatosis. T here is indentation of the right ventricle posteriorly. Pericardial lipoma not excluded. There is pro minence of the thoracic ascending aorta measuring 4.7 x 4.5 cm compatible with mild aneurysmal dilati on coronary artery calcification and cardiomegaly noted. Trace pericardial fluid seen. Heart upper limits of normal in size without pericardial effusion. Aortic valvular calcifications. Th ree-vessel coronary artery calcifications are noted. Large caliber to the main right and left pulmona ry arteries measuring 2.9-2.7 cm stable may reflect underlying pulmonary arterial hypertension. OTHER: Multiple simple appearing bilateral renal cysts. Aortic stent graft partially included. There is a stable bilateral t adrenal nodules. there are hypertrophic and degenerative changes of the spi ne. IMPRESSION: 1. THERE IS A 1.5 CM SPICULATED LESION IN THE RIGHT UPPER LOBE. STABLE FROM PRIOR EXAM. MALIGNANCY NO T EXCLUDED. 2 COPD WITH EMPHYSEMATOUS CHANGES AND FINDINGS SUGGESTIVE OF PULMONARY ARTERIAL HYPERTENSION. THERE I S SUBSEGMENTAL CONSOLIDATION IN THE RIGHT UPPER LOBE MAY BE IN THE BASIS OF ATELECTASIS RATHER THAN E SHELIA INFILTRATE CORRELATE CLINICALLY 3 ASCENDING AORTIC ANEURYSM MEASURES 4.7 X 4.5 CM STABLE 4 THERE IS A PERICARDIAL LIPOMA ADJACENT TO THE ATRIUM\RIGHT VENTRICLE ON THE RIGHT MEASURING 6.1 CM AND STABLE FROM THE PRIOR EXAM. 5 INTERVAL REDUCTION SIZE OF THE MEDIASTINAL CYST\LYMPHADENOPATHY. 6 CHOLELITHIASIS 7 BILATERAL RENAL CYSTS 8 STABLE INDETERMINATE RIGHT ADRENAL LESION. 9. DENSE CORONARY ARTERY CALCIFICATION.
== END | disposition home or self-care (01) ==
LOC: RADCTMAIN 14:40
PROVIDERS: ATTEND Family Medicine
DX: J43.9 Emphysema, unspecified (principal); I71.21 Aneurysm of the ascending aorta, without rupture; D17.4 Benign lipomatous neoplasm of intrathoracic organs; K80.20 Calculus of gallbladder without cholecystitis without obstruction; N28.1 Cyst of kidney, acquired; E27.9 Disorder of adrenal gland, unspecified; I48.0 Paroxysmal atrial fibrillation; I35.1 Nonrheumatic aortic (valve) insufficiency; I25.10 Atherosclerotic heart disease of native coronary artery without angina pectoris; R59.1 Generalized enlarged lymph nodes; R06.09 Other forms of dyspnea; R91.8 Other nonspecific abnormal finding of lung field; Z79.01 Long term (current) use of anticoagulants
CPT/HCPCS: 83880; 80053; 85025; 71275; 36415; Q9967

== ENCOUNTER → 2023-09-06 | Outpatient (CLI) | payer MEDICARE ==
--- NOTE | 2023-09-06 10:12 | CT ---
EXAMINATION TYPE: CT chest wo con CT DLP: 692 mGycm, Automated exposure control for dose reduction was used. DATE OF EXAM: 09/06/2023 9:04 AM COMPARISON: CT 08/21/2022, PET/CT 06/05/2022. CLINICAL INDICATION:Male, 77 years old with history of R91.1 SOLITARY PULMONARY NODULE; PHH, f/u lung nodule TECHNIQUE: Multiple axial images were obtained through the chest. Sagittal and coronal reformats were created for review. Contrast used: mL of (None if empty) Oral contrast used: (None if empty) FINDINGS: LUNGS/ PLEURA: Stable right upper lobe flat like nodular opacity. No new or enlarging pulmonary nodul es. No focal consolidation, pneumothorax or pleural effusion. AIRWAY: Patent and unremarkable. HEART: Size within normal limits. Moderate to severe coronary artery cusp patient's. Moderate coronar y artery calcifications. MEDIASTINUM: No gross evidence of adenopathy. VASCULATURE: No aortic aneurysm. Slitlike appearance of the superior vena cava secondary to lipomato us hypertrophy of interatrial septum. MUSCULOSKELETAL: No acute osseous abnormalities SOFT TISSUES/LYMPH NODES: Unremarkable. LOWER NECK: No significant findings. UPPER ABDOMEN: Multiple renal cysts bilaterally. Cholelithiasis. Right adrenal nodule measuring 31 mm in Hounsfield units compatible with lipid rich adrenal adenoma. IMPRESSION: 1. Stable appearance of the lung parenchyma, no new or enlarging pulmonary nodules. 2. Severe aortic valve calcifications. 3. Moderate coronary artery cusp patient's. 4. Slitlike appearance of the superior vena cava secondary to lipomatous hypertrophy of interatrial septum. 5. Right lipid rich adrenal adenoma measuring 31 mm. 6. Bilateral renal cysts. 7. Cholelithiasis. Follow up recommendations for incidental pulmonary nodules, if there are any, are per [employer]ischner?s [employer] or [employer]. [email or web address].org/articles/jepygrlwcb-[email or web address]?lang=us
== END | disposition home or self-care (01) ==
LOC: RADCTMAIN 08:46
PROVIDERS: ATTEND Thoracic Surgery (Cardiothoracic Vascular Surgery)
DX: N28.1 Cyst of kidney, acquired (principal); R91.1 Solitary pulmonary nodule; K80.20 Calculus of gallbladder without cholecystitis without obstruction
CPT/HCPCS: 71250

== ENCOUNTER → 2024-08-29 | Outpatient (CLI) | payer MEDICARE ==
--- NOTE | 2024-08-29 11:52 | CT ---
EXAMINATION TYPE: CT chest wo con CT DLP: 474.9 mGycm, Automated exposure control for dose reduction was used. DATE OF EXAM: 08/29/2024 11:24 AM COMPARISON: CT chest 09/06/2023, CTA chest 08/21/2022, PET CT 06/05/2022, CT chest 05/25/2022 CLINICAL INDICATION:Male, 78 years old with history of R91.1 LUNG NODULE; PHH, Lung nodule TECHNIQUE: Multiple axial images were obtained through the chest without IV contrast. Lack of IV or o ral contrast limits evaluation of solid and hollow organ viscera. . Coronal and sagittal reformats re viewed. FINDINGS: LUNGS/ PLEURA: No pleural effusion, pneumothorax, focal consolidation. Minimal dependent bilateral lo wer lobe subsegmental atelectasis. Minimal lingular subsegmental atelectasis. Stable anterior right u pper lobe 1.4 cm fat like nodular opacity (series 4, image 26). No new or enlarging pulmonary nodules . AIRWAY: Patent and unremarkable.. HEART: Cardiomegaly is demonstrated.Lipomatous hypertrophy of the intra-atrial septum. No pericardial effusion. Mild coronary artery calcifications present. Moderate aortic valvular calcifications. MEDIASTINUM: Stable enlarged prevascular space 1.5 cm nodule. Stability from multiple prior exams sug gests a benign process. No new adenopathy. VASCULATURE: No aortic aneurysm. Mild to moderate atherosclerotic calcification of the aorta and its branches. MUSCULOSKELETAL: No acute osseous abnormalities. DISH of the mid to lower thoracic spine. SOFT TISSUES/LYMPH NODES: Mild bilateral gynecomastia. LOWER NECK: Macrocalcification within the inferior left thyroid lobe. UPPER ABDOMEN: Redemonstration of bilateral renal cysts which appear simple. No follow-up recommended . Redemonstration of right adrenal gland hypodense lesion measuring up to 3.5 cm with attenuation con sistent with a lipid rich adenoma. No follow-up required. Cholelithiasis IMPRESSION: Stable right upper lobe pulmonary nodule. Stability from multiple exams indicates a benign nodule. No new or enlarging nodules. [facility], , 08/29/2024 11:50 AM
== END | disposition home or self-care (01) ==
LOC: RADCTMAIN 11:00
PROVIDERS: ATTEND Thoracic Surgery (Cardiothoracic Vascular Surgery)
DX: R91.1 Solitary pulmonary nodule (principal)
CPT/HCPCS: 71250